=== PATIENT | male | born 1975 | race Caucasian/White ===

== ENCOUNTER 2018-03-13 15:03 | Inpatient (IN) | payer MEDICARE ==
[~2018-03-13] VITALS: Ht 165.1 cm; Wt 115.7 kg
--- NOTE | ~2018-03-13 | HEMODYNAMI ---
PATIENT:KRISTINE PRO MEDICAL RECORD: [id number] : 75 LOCATION:D.MS Simpson2236 ADMISSION DATE: 03/13/18 Generatedon:03/28/201815:42 Patient name: KRISTINE PRO Patient #: [id number] SSN: : 1975 Date of study: 03/28/2018 Page: Of Hemodynamic Procedure Report Patient Data Patient Demographics Procedure consent was obtained First Name: KRISTINE Gender: Male Last Name: MORTEZA : 1975 Middle Initial: S Age: 42 year(s) Patient #: [id number] Race: Unknown Additional ID: [id number] Contact details Address: [address] [address] State: [place] City: [place] Zip code: [address] Past Medical History Allergies Allergen Reaction Date Comments Reported Penicillins 03/28/2018 Admission Admission Data Admission Date: 03/13/2018 Admission Time: 18:30 Room #: D.2236 Procedure Procedure Types Cath Procedure Peripheral Cath Diagnostic Procedure Miscellaneous Procedure Description Procedure Date Procedure Date: 03/28/2018 Procedure Start Time: 15:32 Procedure Staff Name Function Ramírez Lima MD Performing Physician Terence Valdivia RT Monitor Kaleigh Hernandez RN Nurse Kristen Mccoy RN Nurse Procedure Data Cath Procedure Fluoroscopy Diagnostic fluoroscopy Total fluoroscopy Time: 0.9 time: 0.9 min min Diagnostic fluoroscopy Total fluoroscopy dose: 55 dose: 55 mGy mGy Contrast Material Contrast Material Type Amount (ml) Isovue 300 10 Hemodynamics Rest Pre Cath Intra NCS Post Cath Procedure Log Time Note 14:51:36 Terence Valdivia RT (R) (CV) sent for patient. Start room use. 14:51:47 Time tracking: Regular hours (M-F 7:00 - 5:00) 14:51:52 Plan of Care:Hemodynamics will remain stable., Cardiac rhythm will remain stable., Comfort level will be maintained., Respiratory function will remain adequate., Patient/ family verbilizes understanding of procedure., Procedure tolerated without complication., Recovers from procedure without complications.. 14:51:58 Patient received from Med/Surg to IR Alert and oriented. Tansferred to table in Supine position. 14:51:59 Correct patient and procedure confirmed by team. 14:52:00 Signed procedure consent form obtained from patient. 14:52:01 ECG and BP/O2 sat monitors applied to patient. 14:52:02 Full Disclosure recording started 14:52:09 Use device set IR Diagnostic 14:52:10 Bag Decanter (2002S) opened to sterile field. 14:52:11 Sterile Angiographic Pack opened to sterile field. 14:52:11 Tegaderm 4 x 4 (1626W) opened to sterile field. 14:52:16 - 14:52:20 H&P Date Dictated: 03/28/2018 Within 30 days and on chart.. 14:52:22 Pre-procedure instructions explained to patient. 14:52:23 Pre-op teaching completed and patient verbalized understanding. 14:52:24 Family in waiting room. 14:52:27 Patient NPO since Midnight. 14:52:36 Patient allergic to Penicillins 14:52:41 Is the patient allergic to Iodine/contrast media? No. 14:52:43 Is patient on blood thinner?No 14:52:44 Patient diabetic? No. 14:52:46 - 14:52:47 ----Pre-sedation anethsthesia assessment.---- 14:52:51 Previous problem with sedation/anesthesia? No ? 14:52:53 Snore? Yes 14:52:55 Sleep apnea? Yes 14:52:57 Deviated septum? No 14:53:07 Opens mouth fully? Yes 14:53:09 Sticks out tongue? Yes 14:53:12 Airway obstruction? No ? 14:53:14 Dentures? No ? 15:03:25 IV patent on arrival in left forearm with 0.9% NaCl at [facility]. 15:12:56 Right abdomen area was prepped with chlora-prep and draped in sterile fashion 15:26:17 Alarms reviewed by R. N. 15:26:18 Sharps counted by scrub and verified by R.N. 15:26:20 Physician arrived 15::20 --------ALL STOP TIME OUT------ 15::21 Final Timeout: patient, procedure, and site verified with staff and physician. All members of the team are in agreement. 15:26:24 Right abdomen site verified by team. 15:26:30 Sedation plan: Local Anesthetic Medication:Lidocaine 15:26:41 Procedure started. 15:32:03 Local anesthetic to Abdominal area with Lidocaine 1% by Ramírez Lima MD.INITIAL ACCESS ONLY 15:32:31 BAG, DRAINAGE EMPTY 600ML W/BEAU ([id number]) opened to sterile field. 15:33:27 SUTURE ETHILON 2-0 BLK MONO FS opened to sterile field. 15:35:44 Procedure ended.(Physican Out) 15:39:58 Fluoroscopy time 00.90 minutes. 15:40:02 Fluoroscopy dose: 55 mGy 15:40:02 Flurop Dose total: 55 15:40:05 Contrast amount:Isovue 300 10ml. 15:40:07 Sharps counted by scrub and verified by R.N. 15:40:11 Insertion/operative site no bleeding no hematoma. 15:40:15 Post-op/insertion site Right Abdominal area dressed using a 4 x 4 and Tegaderm. 15:40:37 DRAIN RESUTURED IN WITH 2.0 ETHILON 15:41:15 Post procedure instruction explained to patient.Patient verbalizes understanding. 15:41:16 Procedure and supply charges have been captured, reviewed, submitted an d are correct. 15:41:20 Report given to Other. 15:41:[address] FOR DIFFERENT PROCEDURE Device Usage Item Name Manufacture Quantity Catalog Hospital Part Current Minimal Lot# / Number Charge Number Stock Stock Serial# Code Bag Decanter Microtek 1 [id number] (2001S) Medical Inc. Sterile Cardinal 1 [id number] 5 Angiographic Health Pack Tegaderm 4 x 3M 1 1626W [id number] 5 4 (1626W) BAG, Merit 1 [id number] 5 DRAINAGE Medical EMPTY 600ML W/BEAU (JDO351) SUTURE Ethicon 1 [id number] 5 ETHILON 2-0 BLK MONO FS Signature Audit Finger Stage Time Signature Unsigned Intra-Procedure 03/28/2018 Terence 3:41:57 PM Skip RT (R) (CV) Signatures Monitor : Terence Signature : Skip RT Date : Time : [id number] [place] [address]
--- NOTE | ~2018-03-13 | HEMODYNAMI ---
PATIENT:KRISTINE PRO MEDICAL RECORD: [id number] : 75 LOCATION:D.NH D.2236 ADMISSION DATE: 03/13/18 Generatedon:03/30/201810:22 Patient name: KRISTINE PRO Patient #: [id number] SSN: : 1975 Date of study: 03/30/2018 Page: Of Hemodynamic Procedure Report Patient Data Patient Demographics Procedure consent was obtained First Name: KRISTINE Gender: Male Last Name: MORTEZA : 1975 Middle Initial: S Age: 42 year(s) Patient #: [id number] Race: Unknown Additional ID: [id number] Contact details Address: [address] [address] State: [place] City: [place] Zip code: [address] Past Medical History Allergies Allergen Reaction Date Comments Reported Penicillins 03/28/2018 Penicillins Other 03/30/2018 Admission Admission Data Admission Date: 03/13/2018 Admission Time: 18:30 Room #: D.2236 Procedure Procedure Types Cath Procedure Peripheral Cath Diagnostic Procedure Miscellaneous Procedure Description Procedure Date Procedure Date: 03/30/2018 Procedure Start Time: 10:09 Procedure End Time: 10:20 Procedure Staff Name Function Gareth Todd MD Performing Physician Kaleigh Sutton Monitor Kristen Mccoy RN Nurse Terence Valdivia RT Scrub Procedure Data Cath Procedure Fluoroscopy Diagnostic fluoroscopy Total fluoroscopy Time: 0.8 time: 0.8 min min Diagnostic fluoroscopy Total fluoroscopy dose: 29 dose: 29 mGy mGy Contrast Material Contrast Material Type Amount (ml) Isovue 300 10 Procedure Medications Medication Administration Route Dosage Lidocaine 1% added to field 20 Heparin Flush Bag added to field 1 bags (1000units/500ml NS) Hemodynamics Rest Pre Cath Intra NCS Post Cath Medications Time Medication Route Dose Verified Delivered Reason Notes Effe ctiveness by by 10:07:50 Lidocaine 1% added 20ml Gareth Servin for local to vial Peyton Todd anesthetic field MD MIRZA 10:08:02 Heparin Flush added 1 Gareth Servin used for Bag to bags Peyton Todd procedure (1000units/500ml field MD MIRZA NS) Procedure Log Time Note 9:57:16 Time tracking: Regular hours (M-F 7:00 - 5:00) 9:57:28 Plan of Care:Hemodynamics will remain stable., Cardiac rhythm will remain stable., Comfort level will be maintained., Respiratory function will remain adequate., Patient/ family verbilizes understanding of procedure., Procedure tolerated without complication., Recovers from procedure without complications.. 9:57:52 Patient received from Med/Surg to IR Alert and oriented. Tansferred to table in Supine position. 9:57:55 Warm blankets applied on for patient comfort. 9:58:56 Correct patient and procedure confirmed by team. 9:59:09 Signed procedure consent form obtained from patient. 9:59:14 Full Disclosure recording started 9:59:15 - 9:59:22 Pre-procedure instructions explained to patient. 9:59:25 Pre-op teaching completed and patient verbalized understanding. 9:59:32 Family unavailable. 9:59:48 Patient NPO since Midnight. 10:00:08 Patient allergic to Penicillins 10:00:21 Is the patient allergic to Iodine/contrast media? No. 10:01:27 IV patent on arrival in left wrist with 0.9% NaCl at O. 10:01:53 Right Abdomen was prepped with chlora-prep and draped in sterile fashion. 10:01:55 Alarms reviewed. 10:01:56 Sharps counted by scrub and verified . 10:02:54 No sedation will be used for this procedure. 10:03:34 Use device set IR Diagnostic 10:03:39 Bag Decanter (2002S) opened to sterile field. 10:03:40 Sterile Angiographic Pack opened to sterile field. 10:03:42 Tegaderm 4 x 4 (1626W) opened to sterile field. 10:07:50 Lidocaine 1% 20ml vial added to field was administered by Gareth chew MD; for local anesthetic; 10:08:02 Heparin Flush Bag (1000units/500ml NS) 1 bags added to field was administered by Gareth Todd MD; used for procedure; 10:08:03 Physician arrived 10:08:04 --------ALL STOP TIME OUT------ 10:08:06 Final Timeout: patient, procedure, and site verified with staff and physician. All members of the team are in agreement. 10:08:19 Right abdomen site verified by team. 10:08:38 Sedation plan: None Medication:none 10:09:00 Procedure started. 10:12:12 Dr. Todd injected existing drain. 10:13:10 [place] .035 15cm wire ([id number]) opened to sterile field. 10:15:18 [place].035wire is used to remove the existing drain cath. 10:15:28 Procedure ended.(Physican Out) 10:15:41 Fluoroscopy time 00.80 minutes. 10:16:14 Fluoroscopy dose: 29 mGy 10:16:14 Flurop Dose total: 29 10:16:22 Contrast amount:Isovue 300 10ml. 10:16:26 Sharps counted by scrub and verified . 10:17:38 Post Abdominal area:stable 10:18:00 Post-op/insertion site Right Abdominal area dressed using a 4 x 4 and Tegaderm. 10:18:07 Post procedure instruction explained to patient.Patient verbalizes understanding. 10:18:08 Patient needs reinforcement of post procedure teaching. 10:18:16 Procedure and supply charges have been captured, reviewed, submitted an d are correct. 10:20:12 See physician's report for complete and final results. 10:20:15 Report given to Med/Surg. 10:20:21 Patient transfered to Med/Surg with Bed. 10:20:32 Procedure ended. 10:20:32 Full Disclosure recording stopped 10:20:39 End room use (Document Last) Device Usage Item Name Manufacture Quantity Catalog Hospital Part Current Minimal Lot# / Number Charge Number Stock Stock Serial# Code Bag Decanter Microtek 1 [id number] () Medical Inc. Sterile Cardinal 1 [id number] 5 Angiographic Health Pack Tegaderm 4 x 3M 1 1626W [id number] [id number] 5 4 (1626W) [place] .035 [facility] 1 [id number] 15cm wire ([id number]) Signature Audit Whiting Stage Time Signature Unsigned Intra-Procedure 03/30/2018 Kaleigh 10:22:06 AM Herman Signatures Monitor : Kaleigh Signature : Herman Date : Time : [facility] [address] [place] [address]
--- NOTE | 2018-03-13 15:05 | NUR ---
PT HERE FROM [facility]. A TRANSFER WITH ARF, LFT'S WERE ELEVATED ALONG WITH BNP, BUN, CR. AND CARDIAC ENZ. PT HAD 2 LITERS OF FLUID AND A 500CC BOLUS PRIOR TO ARRIVAL TO ER.
[2018-03-13] MEDS ORDERED: ASPIRIN325 MG PO (15:07)
[2018-03-13 15:56] LABS: BASOPHILS 0.1 % (0-2); EOSINOPHILS 0.9 % (0-7); HEMATOCRIT 33.4 % (42.0-54.0); HEMOGLOBIN 11.6 g/dL (13.5-17.5); IMMATURE GRANULOCYTES 8.8 % (0-5); LYMPHOCYTES 2.6 % (15-50); MCH 29.4 pg (26.0-34.0); MCHC 34.7 g/dL (31.0-37.0); MCV 84.6 fL (80.0-100.0); MEAN PLATELET VOLUME 10.2 fL (7.4-10.4); MONOCYTES 0.3 % (2-11); NEUTROPHILS 87.3 % (40-80); PLATELET COUNT 197 10x3/uL (130-400); RBC 3.95 10x6/uL (4.20-6.10); RDW 13.9 % (11.5-14.5); WBC 15.2 10x3/uL (4.8-10.8)
[2018-03-13 16:09] LABS: INR 1.47 (0.85-1.17); PROTIME 17.2 SECONDS (11.6-15.0)
--- NOTE | 2018-03-13 16:18 | NUR ---
RENAL DIET SERVED TO PT. HE IS RESTING ON RIGHT SIDE, SAT UP IN BED TO EAT. DR SMITH IN WITH PT. BOLUS OF RL INFUSING. PT KARLOS. WELL.
[2018-03-13 16:19] VITALS: BP 98/57
[2018-03-13 16:23] LABS: ALBUMIN 1.5 g/dL (3.4-5.0); ANION GAP 26.2 mmol/L (8-16); BILIRUBIN - TOTAL 0.92 mg/dL (0.2-1.3); CARBON DIOXIDE 15.2 mmol/L (21.0-32.0); CREATININE - SERUM 3.9 mg/dL (0.6-1.3); POTASSIUM - SERUM 3.4 mmol/L (3.5-5.1); PROTEIN - SERUM 5.5 g/dL (6.4-8.2)
[2018-03-13 16:25] LABS: CALCIUM 5.8 mg/dL (8.5-10.1)
[2018-03-13 17:48] VITALS: BP 86/60
--- NOTE | 2018-03-13 17:48 | NUR ---
BLADDER SCANNER SHOWS 0ML'S IN PTS BLADDER. HAS BEEN UNABEL TO COLLECT A URINE SINCE ARRIVAL. STATES HE WENT IN THE AMBULANCE ON THE WAY HERE.
--- NOTE | 2018-03-13 18:22 | NUR ---
PT SITTING UP IN BED, SHAKING AND BREATHING HARD, STATES "I AM GOING TO NEED SOMETHING STRONG I AM ABOUT TO HAVE AN EPISODE" EXPLAIN THAT HE WAS GIVEN ATIVAN AT [place] AND THE AMBULANCE GAVE HIM BENADRYL. HE STATES " I AM GOING TO NEED SOMETHING STRONGER THAN THAT". WHAT HE TAKES AT HOME FOR THESE EPISODES AND HE STATES HE JUST STARTED HAVING THIS PROBLEM, HAS HAD ABOUT 7 . HIS MOTHER IS AT HIS BEDSIDE, INFORM DR. SMITH OF WHAT HE IS DOING.
--- NOTE | 2018-03-13 18:33 | NUR ---
PT CONT. TO LISA, MOM AT BEDSIDE, DR. SMITH IN TO SEE PT. VISTARIL GIVEN PER ORDERS. PT KARLOS. WELL
[2018-03-13 18:42] VITALS: BP 158/84
--- NOTE | 2018-03-13 18:42 | NUR ---
PT STARTING TO CALM DOWN, INCOURAGE HIM TO SLOW HIS BREATHING DOWN.
[2018-03-13 19:06] LABS: CREATINE KINASE 366 UL (21-232)
[2018-03-13 19:09] LABS: CKMB 2.7 U/L (0.0-3.6)
--- NOTE | 2018-03-13 19:20 | NUR ---
PT RESTING ON BED, FAMILY AND DR CASAS AT PT BEDSIDE.
--- NOTE | 2018-03-13 19:35 | MORECARE ---
CASE MANAGEMENT DISCHARGE SUMMARY PATIENT: KRISTINE PRO UNIT: [id number] ADM DATE: 03/13/18 AGE: 42 : 75 SEX: M ROOM/BED: D.2139 AUTHOR: ALFREDO HORTON PHYSICIAN: REFERRING PHYSICIAN: CRISTIN RICKETTS MD DATE OF SERVICE: 03/13/18 Discharge Plan Patient Name: KRISTINE PRO [facility] [facility] 1975 Planned Disposition: Anticipated Discharge Date: Discharge Date: Expected LOS: Initial Reviewer: [email or web address] Initial Review Date: 03/13/2018 Generated: 03/13/18 8:34 pm Patient Name: KRISTINE PRO Page 30415 at 1935 All edits/amendments must be made on the electronic document DICTATION DATE: 03/13/181933 PLANT OPERATIONS COORDINATOR: JODY 03/13/181933 RPT#: [id number] DC DATE: STATUS: ADM IN [facility] [address] [place] [address] END OF REPORT
--- NOTE | 2018-03-13 19:53 | NUR ---
CRITICAL LAB LACTIC ACID 6.1. DR JAMARCUS ARSHAD.
--- NOTE | 2018-03-13 20:12 | NUR ---
NO RETURN CALL REGARDING CRITICAL LAB AT THIS TIME. PT TRANSPORTED TO INPATIENT ROOM VIA .
[2018-03-13] MEDS ORDERED: ALEVE220 MG PO (20:24)
--- NOTE | 2018-03-13 20:25 | NUR ---
RECEIVED FROM ER VIA WC. ALERT/ORIENTED X3. AMBULATED TO BED WITH STEADY GAIT. IV IN R FA WITH LR INFUSING AT 125ML/HR. DENIES PAIN OR ANY DISCOMFORT. ORIENTED TO ROOM AND CALL LIGHT. HIS MOTHER IS STAYING THE NIGHT.
[2018-03-13 20:53] VITALS: BP 89/50
[2018-03-13 22:25] LABS: APPEARANCE HAZY (CLEAR); BILIRUBIN NEGATIVE (NEGATIVE); COLOR DK YELLOW (YELLOW); GLUCOSE NEGATIVE (NEGATIVE); KETONE NEGATIVE (NEGATIVE); NITRITE NEGATIVE (NEGATIVE); PROTEIN 1+ mg/dL (NEGATIVE); SPECIFIC GRAVITY 1.015 (1.005-1.020); UROBILINOGEN NORMAL (NORMAL)
[2018-03-13 22:27] LABS: BACTERIA MODERATE /hpf (NONE SEEN); EPITHELIAL CELLS 0-5 /hpf (0-5); RED CELLS - URINE 0-5 /hpf (0-5); WHITE CELLS - URINE 0-5 /hpf (0-5)
[2018-03-13 22:28] LABS: AMORPHOUS SEDIMENT <1+ /lpf (NONE SEEN); GRANULAR CAST 0-5 /lpf (NONE SEEN)
[2018-03-13 22:36] LABS: UDS - AMPHET NEGATIVE QUAL (NEGATIVE); UDS - BARB NEGATIVE QUAL (NEGATIVE); UDS - BENZO NEGATIVE QUAL (NEGATIVE); UDS - COCAINE NEGATIVE QUAL (NEGATIVE); UDS - OPIATE NEGATIVE QUAL (NEGATIVE); UDS - PCP NEGATIVE QUAL (NEGATIVE); UDS - THC NEGATIVE QUAL (NEGATIVE)
--- NOTE | 2018-03-13 23:00 | NUR ---
C/O CHILLS AND VISIBLE SHAKING NOTED. TURNED UP THE TEMP AND GOT HIM ANOTHER BLANKET. REQUESTED SOME MORE JUICE.
[2018-03-14] VITALS (10 sets, daily range): BP systolic 82–134; BP diastolic 41–73; BMI 35.0
--- NOTE | 2018-03-14 00:30 | NUR ---
HAVING 2ND SESSION OF DIARRHEA. RAILROAD DETECTIVE TAKING HIM ANOTHER GOWN AND PAD FOR HIS BED.
[2018-03-14 04:42] LABS: BASOPHILS 0.1 % (0-2); EOSINOPHILS 0 % (0-7); HEMATOCRIT 28.9 % (42.0-54.0); HEMOGLOBIN 10.2 g/dL (13.5-17.5); IMMATURE GRANULOCYTES 8.1 % (0-5); LYMPHOCYTES 2.9 % (15-50); MCH 29.6 pg (26.0-34.0); MCHC 35.3 g/dL (31.0-37.0); MCV 83.8 fL (80.0-100.0); MEAN PLATELET VOLUME 11.3 fL (7.4-10.4); NEUTROPHILS 87.9 % (40-80); RBC 3.45 10x6/uL (4.20-6.10); RDW 13.8 % (11.5-14.5); WBC 16.4 10x3/uL (4.8-10.8)
[2018-03-14 04:54] LABS: PLATELET COUNT 135 10x3/uL (130-400)
[2018-03-14 05:44] LABS: CARBON DIOXIDE 13.5 mmol/L (21.0-32.0); CHLORIDE - SERUM 96 mmol/L (98-107); CREATININE - SERUM 4.3 mg/dL (0.6-1.3); POTASSIUM - SERUM 3.7 mmol/L (3.5-5.1); SODIUM 131 mmol/L (136-145); UREA NITROGEN 66 mg/dL (7-18); eGFR NON AFRICAN AMERICAN 16 mL/min (90-120)
[2018-03-14 05:45] LABS: CALC OSMOLALITY 279 mosm/kg (275-300); CALCIUM 6.5 mg/dL (8.5-10.1); CREATINE KINASE 793 UL (21-232); GLUCOSE 65 mg/dL (74-106)
[2018-03-14 05:46] LABS: CKMB 3.5 U/L (0.0-3.6)
--- NOTE | 2018-03-14 08:41 | NUR ---
SPOKE WITH DR. CUMMINGS HE STATES HE KNOWS PT ALREADY ATE AND CT WAS ORDERED IF THEY HAVE TO DO IT TOMOROW AM THAT'S FINE LONG IT GETS DONE.
--- NOTE | 2018-03-14 09:35 | NUR ---
RESP UL ON . CALL LIGHT IN REACH. WILL CONT. PLAN OF CARE.
--- NOTE | 2018-03-14 09:43 | NUR ---
WAITING FOR PHARMACY TO BRING SODIUM BICARB.
--- NOTE | 2018-03-14 10:45 | NUR ---
STOOL COLLECTION HAT PLACED IN COMMODE AND PT VERBALIZED UNDERSTANDING OF STOOL COLLECTION NEEDED.
--- NOTE | 2018-03-14 10:56 | NUR ---
SPOKE WITH RASHMI IN PHARMACY AND ASKED FOR SODIUM BICARB. HE STATES "WE'LL GET YOU ONE."
--- NOTE | 2018-03-14 11:40 | NUR ---
PT TAKEN FOR CT SCAN VIA WC.
--- NOTE | 2018-03-14 13:59 | NUR ---
PT CAN'T KEEP FOOD OR DRINK DOWN. GAVE PT BLUE BAGS. CALLED TAYLOR MADISON AND STATED TO HER I HAVE ALREADY GIVEN PT ZOFRAN IS THERE ANYTHING ELSE I CAN GET FOR HIM. SHE STATED SHE'S "LOOKING AT HIS CHART RIGHT NOW AND SHE'LL LOOK AND SEE." STATED THIS TO PT AND FAMILY AND THEY VERBALIZED UNDERSTANDING.
--- NOTE | 2018-03-14 15:50 | NUR ---
LEFT FA 22G IV INSERTED ON X2 ATTEMPT FOR ZOFRAN DRIP. WAITING ON PHARMACY TO BRING SOFRAN DRIP.
--- NOTE | 2018-03-14 16:01 | NUR ---
SPOKE WITH ABRIL FROM PHARMACY AND ASKED IF SHE WOULD BRING ZOFRAN DRIP AND SHE STATED "YES."
--- NOTE | 2018-03-14 16:11 | NUR ---
SPOKE WITH TAYLOR [facility] AND SHE STATES SHE FORGOT TO PUT IN ORDERS FOR NG TUBE TO LOW INTERMITTENT SUCTION AND TO MAKE PT NPO BUT HE CAN HAVE ICE CHIPS. I STATED TO HER PT'S BP IS 89/50 BUT HE'S BEEN RUNNING PRETTY LOW. SHE STATES TO CALL DR. HART AND ASK HIM IF PT'S NEEDS TO GO TO THE ICU.
--- NOTE | 2018-03-14 16:18 | NUR ---
SPOKE WITH DR. HART AND STATED TO HIM "PT'S BP IS 89/50 AND I SPOKE WITH TAYLOR M[facility]ISON AND SHE STATES TO ME TO CALL HIM AND SEE IF PT CAN GO TO THE UNIT." HE STATED "NO HE DOESN'T NEED TO GO TO THE UNIT HE'S JUST DEHDRATED FROM THROWING UP JUST GIVE HIM 1L BOLUS OF NS AND START NS AT 150ML/HR AND IF HIS BLOOD PRESSURE CONTINUES TO DROP TO CALL BACK." SPOKE WITH CHARGE NURSE ABOUT THESE ORDERS AND RASHIDA PARKS APN PAGED.
--- NOTE | 2018-03-14 16:30 | NUR ---
SPOKE WITH RASHIDA MAD[facility] ABOUT WHAT IS GOING ON WITH PT AND EXPLAINED TO HER MY CONCERNS FOR NG TUBE PLACEMENT, BP, AND PT NOT BEING ABLE TO BE WATCHED CLOSE ENOUGH ON THIS FLOOR. SHE STATES "DO NS BOLUS AND SEE WHAT HAPPENS AND IF BP DOESN'T CHANGE CALL ME BACK."
--- NOTE | 2018-03-14 16:30 | NUR ---
RASHIDA MADISON ALSO STATES SO HAVE PT USE A URINAL SO WE KNOW HOW MUCH HE IS PUTTING OUT.
--- NOTE | 2018-03-14 16:49 | NUR ---
NS BOLUS INFUSING AT 999ML/HR THROUGH RIGHT FA 18G IV.
--- NOTE | 2018-03-14 17:13 | NUR ---
ROBBIN RN TRIED PLACING NG TUBE AND PT REFUSED AND KEPT PUSHING HER ARMS AWAY. SPOKE WITH DR. HART HE STATES "OK THAT'S HIS CHOICE JUST MAKE HIM NPO AFTER MIDNIGHT FOR BIOPSY IN THE AM."
--- NOTE | 2018-03-14 18:04 | NUR ---
STATED TO PT THEY ARE WANTING TO KEEP TRACK OF HOW MUCH PT IS URINATING. GAVE PT A URINAL. ALSO STATED TO PT HE IS TO BE NPO AFTER MIDNIGHT. PT VERBALIZED UNDERSTANIDNG. CONSENTS FOR TOMORROW LIVER ASPIRATION SIGNED. DEB CALLAHAN STARTED.
--- NOTE | 2018-03-14 18:15 | NUR ---
CHECKED PT'S BP 30 MIN. AFTER NS BOLUS WAS COMPLETED IN RIGHT ARM 91/61 RECHECKED AND IT WAS 89/63. CHECKED IN LEFT ARM AND IT WAS 94/[address]. [address] HART AND STATED TO HIM PT'S BP'S AND THAT HE IS A LITTLE LETHARGIC AND HAVING AHARD TIME WAKING UP. HE STATES "OK SEND HIM TO THE UNIT."
--- NOTE | 2018-03-14 18:18 | NUR ---
PILE DRIVER ENGINEER CALLED AND STATED TO HER PT NEEDING ICU BED SHE STATED OK SHE WILL GET ONE.
--- NOTE | 2018-03-14 18:26 | NUR ---
STATED TO PT'S MOTHER THAT SINCE HIS BP IS STILL STAYING SO LOW EVEN AFTER THE NS BOLUS I SPOKE WITH DR. HART AND HE STATES TO SEND HIM TO ICU. SHE VERBALIZED UNDERSTANIDNG AND GOT PT TO WAKE UP TO TELL HIM AND HE SAID "OK."
--- NOTE | 2018-03-14 18:36 | NUR ---
SPOKE WITH LAB AND THEY STATED THEY HAVE TWO GRAM POSITIVE COCCI IN CHAINS.
--- NOTE | 2018-03-14 18:54 | NUR ---
PT WANITNG SOMETHING FOR ANXIETY AND PAIN BUT SINCE HIS BP IS SO SLOW HE WON'T BE ABLE TO TAKE ANYTHING. STATED THIS TO PT. PT VERBALIZED UNDERSTANDING.
--- NOTE | 2018-03-14 19:05 | NUR ---
REPORT CALLED TO [facility] ICU THEY STATED HAVE TO CLEAN THE ROOM FIRST.
--- NOTE | 2018-03-14 19:24 | NUR ---
PT TO ICU PER WHEELCHAIR
--- NOTE | 2018-03-14 20:04 | NUR ---
REPORT RECEIVED, SHIFT ASSESSMENT COMPLETED PER FLOW SHEET, PT TEMP ELEVATED, MED GIVEN PER MAR, ON ICU MONITORS, PT C/O BEING HOT, DECREASED TROOM TEMP, REMOVED EXCESS BLANKETS, WILL CONTINUE TO ASSESS, PT MOTHER AT BEDSIDE
--- NOTE | 2018-03-14 23:30 | NUR ---
PT GRUNTING AND MOVING AROUND IN BED, C/O BEING COLD, PT GIVEN X2 WARM BLANKETS AND TEMP IN ROOM INCREASED, PT STATED CHANGES HELPED, SINUS TACH @105bpm ON MONITOR, OTHER VSS, WILL CONTINUE TO ASSESS
[2018-03-15] VITALS (30 sets, daily range): BP systolic 87–178; BP diastolic 51–117
--- NOTE | 2018-03-15 02:30 | NUR ---
PT HAS INCREASED N/V, DRY HEAVING AT THIS TIME, GAVE N/V MED PER MAR, WILL CONTINUE TO ASSESS
[2018-03-15 04:22] LABS: BASOPHILS 0.1 % (0-2); EOSINOPHILS 0.1 % (0-7); HEMATOCRIT 30.8 % (42.0-54.0); HEMOGLOBIN 10.8 g/dL (13.5-17.5); IMMATURE GRANULOCYTES 0.5 % (0-5); LYMPHOCYTES 5.1 % (15-50); MCH 29.4 pg (26.0-34.0); MCHC 35.1 g/dL (31.0-37.0); MCV 83.9 fL (80.0-100.0); MEAN PLATELET VOLUME 11.6 fL (7.4-10.4); MONOCYTES 5.5 % (2-11); NEUTROPHILS 88.7 % (40-80); RBC 3.67 10x6/uL (4.20-6.10); RDW 13.8 % (11.5-14.5); WBC 17.2 10x3/uL (4.8-10.8)
[2018-03-15 04:26] LABS: INR 1.43 (0.85-1.17); PROTIME 16.9 SECONDS (11.6-15.0)
[2018-03-15 04:55] LABS: ALBUMIN 1.3 g/dL (3.4-5.0); ALKALINE PHOSPHATASE 191 U/L (46-116); BILIRUBIN - DIRECT 0.88 mg/dL (0.00-0.30); BILIRUBIN - INDIRECT 0.25 mg/dL (0.00-1.00); BILIRUBIN - TOTAL 1.13 mg/dL (0.2-1.3); CHLORIDE - SERUM 97 mmol/L (98-107); CREATININE - SERUM 3.4 mg/dL (0.6-1.3); MAGNESIUM - SERUM 1.4 mg/dL (1.8-2.4); PHOSPHOROUS 3.1 mg/dL (2.5-4.9); PLATELET COUNT 57 10x3/uL (130-400); POTASSIUM - SERUM 3.2 mmol/L (3.5-5.1); PROTEIN - SERUM 5.7 g/dL (6.4-8.2); SODIUM 132 mmol/L (136-145); UREA NITROGEN 75 mg/dL (7-18); eGFR NON AFRICAN AMERICAN 21 mL/min (90-120)
[2018-03-15 04:57] LABS: CALC OSMOLALITY 286 mosm/kg (275-300); GLUCOSE 102 mg/dL (74-106)
[2018-03-15 04:58] LABS: ALT (SGPT) 153 U/L (10-68); CALCIUM 6.2 mg/dL (8.5-10.1); CREATINE KINASE 427 UL (21-232)
[2018-03-15 05:39] LABS: PLATELET ESTIMATE DECREASED
--- NOTE | 2018-03-15 07:00 | NUR ---
PATIENT RESTING IN BED AWAKE AND ALERT. C/O BEING COLD SO TURNED UP TEMP IN ROOM, TURNED FAN OFF, AND GAVE WARM BLANKET. SLIGHTY TACHYPNEIC. LUNG SINCLAIR CLEAR BUT WITH SHALLOW BREATHS. O2 SAT 92% ON OXYGEN ON 4 L/NC. VSS. WILL CONTINEUT TO MONITOR.
--- NOTE | 2018-03-15 11:06 | NUR ---
PATIENT TAKEN DOWN TO CT AT THIS TIME. BROUGHT PORTABLE VS MACHINE, OXYGEN, AND IV POLE.
--- NOTE | 2018-03-15 13:19 | NUR ---
PATIENT HEART RATE 140. 02 SAT 83%. PATIENT IS HYPERVENTILATING. ATIVAN ALREADY GIVEN. GAVE PLASICT BAG FOR HYPERVENTILLATION
--- NOTE | 2018-03-15 13:29 | NUR ---
PATIENT HAS CALMED DOWN CONSIDERABLY. O2 SAT MAINTAINING 90%. HR SLOWED TO 125. WILL CONTINUE TO MONITOR. DR. HART AWARE OF CONDITION
--- NOTE | 2018-03-15 14:37 | NUR ---
LAST K+ BAGG HANGING. STARTED NS AT 125. O2 STILL INFUSING NC AT 6L/MIN. WILL CONTINUE TO MONITOR.
--- NOTE | 2018-03-15 14:59 | NUR ---
STAT CHEST X-RAY ORDERED AND PLACED ON HIGH FLOW NC AT 7L. O2 SAT 96%. PATIENT BREATH MORE EFFECTIVELY NOW. BP 93/53. MAP 68. WILL CONTINUE TO MONITOR
--- NOTE | 2018-03-15 16:09 | NUR ---
NOTIFIED DR. HART OF LOW BP, AND NEED FOR HIGH FLOW NC AT 7L/MIN.
--- NOTE | 2018-03-15 16:19 | NUR ---
NOTIFIED DR. HART OF RESULTS FROM LIVER ABSCESS CULTURES
--- NOTE | 2018-03-15 17:00 | NUR ---
CALLED PATIENTS MOM PER PATIENT REQUEST TO GIVE UPDATE ON PATIENT FEELING BETTER. DID NOT ANSWER.
--- NOTE | 2018-03-15 17:55 | NUR ---
SERVED PATIENT DINNER TRAY. VSS. AWAKE AND ALERT. WILL CONTINUE TO MONITOR
[2018-03-15 18:46] LABS: ANION GAP 16.5 mmol/L (8-16); CARBON DIOXIDE 23.4 mmol/L (21.0-32.0); CREATININE - SERUM 3.2 mg/dL (0.6-1.3); POTASSIUM - SERUM 3.9 mmol/L (3.5-5.1)
[2018-03-15 18:47] LABS: CALCIUM 6.6 mg/dL (8.5-10.1)
--- NOTE | 2018-03-15 19:10 | NUR ---
ASSESSMENT COMPLETED PER FLOWSHEET, PT AWAKE AND ALERTX3, C/O PAIN TO RT SIDE, ABDOMEN 5/10 ON SCALE, REPOSIIONED FOR COMFORT. PAIN MEDS GIVEN PER ORDER. SR ON CM WITH HR AT 84BPM, LUNG SOUNDS DIMINISHED TO LLB, UNLABORED, ON 5L VIA HIGH FLOW. RT DRAIN INTACT WITH BLOODY DRAINAGE NOTED TO BAG. PPP. WILL CONT TO MONITOR.
--- NOTE | 2018-03-15 21:00 | NUR ---
NO VISITORS AT THIS TIME. PT RESTING QUIETLY WITHOUT DISTRESS.VSS
--- NOTE | 2018-03-15 23:00 | NUR ---
REASSESSMENT COMPLETED PER FLOWSHEET.PT AROUSES WITH VOICES WITHOUT DIFFIC. VSS. DENIES ANY NEEDS FOR NOW. CALL LIGHT IN REACH. CPOC.
[2018-03-16] VITALS (13 sets, daily range): BP systolic 101–147; BP diastolic 55–81; BMI 37.4
--- NOTE | 2018-03-16 01:00 | NUR ---
PT RESTING QUIETLY WITHOUT DISTRESS AT THIS TIME. ASSISTED WITH URINAL. VOIDS 200CC CONC. URINE. VSS. CALL LIGHT IN REACH. CPOC.
--- NOTE | 2018-03-16 04:00 | NUR ---
PT C/O VOMITING. 30CC YELLOW EMESIS NOTED.COLD WASH CLOTH TO FOREHEAD APPLED, MOUTH CARE PROVIDED. ZOFRAN 4MG IVP GIVEN PER ORDER. CPOC.
[2018-03-16 04:40] LABS: INR 1.33 (0.85-1.17); PROTIME 15.9 SECONDS (11.6-15.0)
[2018-03-16 04:49] LABS: ALBUMIN 1.3 g/dL (3.4-5.0); ANION GAP 14.7 mmol/L (8-16); BILIRUBIN - TOTAL 1.07 mg/dL (0.2-1.3); CARBON DIOXIDE 24.1 mmol/L (21.0-32.0); CREATININE - SERUM 2.9 mg/dL (0.6-1.3); POTASSIUM - SERUM 3.8 mmol/L (3.5-5.1); PROTEIN - SERUM 6.3 g/dL (6.4-8.2); VANCOMYCIN - RANDOM 7.5 ug/mL (10.0-20.0)
[2018-03-16 04:58] LABS: PHOSPHOROUS 5.7 mg/dL (2.5-4.9)
[2018-03-16 05:07] LABS: BASOPHILS 0.1 % (0-2); EOSINOPHILS 0.1 % (0-7); HEMATOCRIT 33.7 % (42.0-54.0); HEMOGLOBIN 11.5 g/dL (13.5-17.5); IMMATURE GRANULOCYTES 0.5 % (0-5); LYMPHOCYTES 6.1 % (15-50); MCHC 34.1 g/dL (31.0-37.0); MCV 85.1 fL (80.0-100.0); MEAN PLATELET VOLUME 12.6 fL (7.4-10.4); MONOCYTES 5.9 % (2-11); NEUTROPHILS 87.3 % (40-80); RBC 3.96 10x6/uL (4.20-6.10); RDW 14.2 % (11.5-14.5); WBC 15.2 10x3/uL (4.8-10.8)
[2018-03-16 05:08] LABS: PLATELET COUNT 34 10x3/uL (130-400)
--- NOTE | 2018-03-16 05:33 | NUR ---
PT C/O PAIN 5/10 ON SCALE, DILAUDID 1MG IVP GIVEN PER ORDER. REPOSITIONED FOR COMFORT. CALL LIGHT IN REACH. CPOC
--- NOTE | 2018-03-16 07:39 | NUR ---
PT SITTING UP IN BED USING URINAL. NO S/S OF ACUTE DISTRESS. CL IN PLACE.
--- NOTE | 2018-03-16 11:18 | NUR ---
CALLED REPORT TO [facility]. TRANS PT VIA WC. NO S/S OF ACUTE DISTRESS. MOTHER AT BEDSIDE.
--- NOTE | 2018-03-16 11:18 | NUR ---
PATIENT TRANSFERED TO FLOOR AT THIS TIME BY TWO ICU NURSES. PATIENT ASSISTED TO BED. DRAIN INTACT WITH BROWN DRAINAGE NOTED. VITALS ARE STABLE WITH ELEVATED TEMP AT THIS TIME. FAMILY AT BEDSIDE.
--- NOTE | 2018-03-16 19:30 | NUR ---
RESUMING PT CARE, PT IS LAYING IN BED WITH EYES CLOSED, RESPIRATIONS EVEN AND UNLABORED. MOTHER IS AT BEDSIDE, BED IN LOWEST POSITION WITH RAILS UP X2, CALL LIGHT IN REACH. WILL CONTINUE TO MONITOR AND FOLLOW PLAN OF CARE.
[2018-03-17] VITALS (12 sets, daily range): BP systolic 90–189; BP diastolic 7–94
[2018-03-17 05:22] LABS: BASOPHILS 0.1 % (0-2); EOSINOPHILS 0.1 % (0-7); HEMOGLOBIN 10.5 g/dL (13.5-17.5); IMMATURE GRANULOCYTES 1.2 % (0-5); LYMPHOCYTES 2.7 % (15-50); MONOCYTES 4.6 % (2-11); NEUTROPHILS 91.3 % (40-80); RBC 3.62 10x6/uL (4.20-6.10); WBC 16.9 10x3/uL (4.8-10.8)
[2018-03-17 05:23] LABS: MCV 82.9 fL (80.0-100.0); PLATELET COUNT 38 10x3/uL (130-400)
[2018-03-17 05:37] LABS: ANION GAP 12.4 mmol/L (8-16); BILIRUBIN - TOTAL 1.67 mg/dL (0.2-1.3); CARBON DIOXIDE 21.6 mmol/L (21.0-32.0); CREATININE - SERUM 2.1 mg/dL (0.6-1.3); MAGNESIUM - SERUM 1.6 mg/dL (1.8-2.4); PHOSPHOROUS 3.4 mg/dL (2.5-4.9); PROTEIN - SERUM 5.8 g/dL (6.4-8.2)
[2018-03-17 05:41] LABS: CALCIUM 6.6 mg/dL (8.5-10.1)
--- NOTE | 2018-03-17 06:36 | NUR ---
RAPID RESPONSE CALLED, ICU RESPONDED AND CONSULTED WITH DR HART. PT SEEMS BETTER AT THIS TIME, MOM IS AT BEDSIDE. CALL LIGHT IN REACH, WILL CONTINUE TO MONITOR.
--- NOTE | 2018-03-17 07:35 | NUR ---
ROUNDING COMPLETED AT THIS TIME. PATIENT IS RESTING WITH EYES CLOSED. MOM IS AT BEDSIDE. RASHIDA MADISON NOTIFIED OF LOW POTASSIUM AND MAGNESIUM. NEW ORDERS GIVEN TO FOLLOW PROTOCOL WITH 40 MEQ KDUR AND 800 MG MAG OX. CALL LIGHT IN REACH. BED IN LOWEST POSITION.
--- NOTE | 2018-03-17 13:57 | EC ---
PATIENT:KRISTINE PRO DATE OF SERVICE: 03/13/18 SEX: M MEDICAL RECORD: [id number] DATE OF : 75 LOCATION:D.M2 D.210 AGE OF PATIENT: 42 ADMISSION DATE: 03/13/18 REFERRING PHYSICIAN: INTERPRETING PHYSICIAN: ESTIVEN GOYAL MD ECHOCARDIOGRAM REPORT ECHO CHARGES 4 ECHO COMPLETE Date: 03/15/18 CLINICAL DIAGNOSIS: R/O ENDOCARDITIS ECHOCARDIOGRAPHIC MEASUREMENTS (adult normal given) AC root (d.<3.7cm) 3.7 cm LV Septum d (<1.2 cm> 1.6 cm Valve Excursion 2.0 cm LV Septum (systole) 1.9 cm Left Atria (s.<4.0cm> 4.2 cm LVPW d(<1.2cm) 1.2 cm RV (d.<2.3cm) 4.1 cm LVPW (sytole) 1.3 cm LV diastole(<5.6CM) 5.8 cm MV E-F(>70mm/sec) cm LV systole 5.2 cm LVOT Diameter 1.9 cm MV exc.(>10mm) cm Est.ejection fraction (50-75%) % DOPPLER: LVIT cm/sec A 65 cm/sec E 82 cm/sec LA cm/sec RVSP 47.5 mmHg LVOT 129 cm/sec AOP1/2T m/s Asc. Ao 159 cm/sec RVOT 82 cm/sec RA cm/sec PA 105 cm/sec AV Gradient Peak 10.1 mmHg AV Mean 6.7 mmHg AV Area 2.1 cm MV Gradient Peak 5.2 mmHg MV Mean 2.4 mmHg MV Area cm COMMENTS: Aviation Program Manager: Rasta DILL Commercial Escrow Assistant: 3 Dr. Hernandez TAPE# PACS Pericardial Effusion N DATE OF SERVICE: Adequate 2D, color flow, spectral Doppler, and M-Mode. Borderline LVH. LV internal dimensions normal, wall motion normal. EF greater than or equal to 55%. Aortic valve is tricuspid, had no evidence of stenosis on Doppler interrogation. The left atrium mildly dilated at 4.2 cm. Mitral valve shows no prolapse. Trace MR. Right-sided chambers appear grossly normal. Mild TR, no evidence of vegetation in all 4 cardiac valves. TRANSINT:[id number] Voice Confirmation ID: [id number] DOCUMENT ID: [id number] ECHOCARDIOGRAM REPORT [id number] KRISTINE PRO,ESTIVEN Cutler MD at 1357 CC: [id number] DICTATION DATE: 03/16/18137 AGRICULTURAL EXTENSION SPECIALIST: 03/16/18 0731 ADM IN [place] [id number] [place] [address]
[2018-03-17 15:17] LABS: SPE - A/G RATIO 0.5 (0.7-1.7); SPE - ALBUMIN 1.6 g/dL (2.9-4.4); SPE - ALPHA-1 GLOBULIN 0.4 g/dL (0.0-0.4); SPE - BETA GLOBULIN 0.7 g/dL (0.7-1.3); SPE - GAMMA GLOBULIN 1.3 g/dL (0.4-1.8); SPE - M-SPIKE Not Observed g/dL (Not Observed)
--- NOTE | 2018-03-17 17:00 | NUR ---
REC'D PT TO ICU. TEMP 103.3. CALLED DR HART AND REPORTED TEMP. REC'D ORDERS FOR TYLENOL. ALL MONITORING EQUIPMENT ATTACHED AND ALARMS SET.
[2018-03-17 19:02] LABS: HEMATOCRIT 31.6 % (42.0-54.0); HEMOGLOBIN 11.2 g/dL (13.5-17.5); MCH 29.3 pg (26.0-34.0); MCHC 35.4 g/dL (31.0-37.0); MCV 82.7 fL (80.0-100.0); RBC 3.82 10x6/uL (4.20-6.10); RDW 14.1 % (11.5-14.5); WBC 18.9 10x3/uL (4.8-10.8)
[2018-03-17 19:04] LABS: PLATELET COUNT 66 10x3/uL (130-400)
[2018-03-17 19:18] LABS: APTT 40.8 SECONDS (22.8-39.4); INR 1.45 (0.85-1.17)
[2018-03-17 19:26] LABS: D-DIMER-QUANTITATIVE 11.12 ug/mLFEU (0.20-0.54)
--- NOTE | 2018-03-17 19:54 | NUR ---
RECEIVED CALL FROM [facility] L[facility]EL [address] HART AND RECEIVED VERBAL ORDER OF LACTULOSE 30MG BID, ORDER ENTERED AND VERIFIED, TO START AT 2100
--- NOTE | 2018-03-17 22:00 | NUR ---
NO S/S OF DISTRESS CALL LIGHT IN REACH ALL FLUIDS RUNNING ORDERED, VSS, ALL NEEDS MET AT THIS TIME ALL SAFETY MEASURES IN PLACE WILL CONTINUE TO MONITOR.
[2018-03-18] VITALS (26 sets, daily range): BP systolic 90–170; BP diastolic 52–119
--- NOTE | 2018-03-18 00:09 | NUR ---
vss all needs met, all safety measures in place will continue to monitor.
--- NOTE | 2018-03-18 02:07 | NUR ---
pt resting well, no s/s of distress vss, denies pain will continue to monitor.
--- NOTE | 2018-03-18 02:40 | NUR ---
pt becoming more alert asked for drink of water and it was given to him, he tolerated it well. no other needs at this time.
--- NOTE | 2018-03-18 04:34 | NUR ---
pt tried to refuse lab draw said he hadnt slept all night, returnd to room with phlebo and stated to pt he had slept all night and that it was important to have labs drawn at this time, pt allowed blood to be drawn.
[2018-03-18 04:46] LABS: BASOPHILS 0.1 % (0-2); EOSINOPHILS 0.1 % (0-7); LYMPHOCYTES 5.4 % (15-50); MCH 29.6 pg (26.0-34.0); MCHC 35.3 g/dL (31.0-37.0); MCV 83.7 fL (80.0-100.0); MONOCYTES 5.6 % (2-11); NEUTROPHILS 87.8 % (40-80); PLATELET COUNT 62 10x3/uL (130-400); RBC 4.06 10x6/uL (4.20-6.10); RDW 14.3 % (11.5-14.5); WBC 17.1 10x3/uL (4.8-10.8)
[2018-03-18 05:27] LABS: ALBUMIN 1.1 g/dL (3.4-5.0); ANION GAP 13.8 mmol/L (8-16); BILIRUBIN - TOTAL 1.52 mg/dL (0.2-1.3); CALCIUM 7.1 mg/dL (8.5-10.1); CREATININE - SERUM 1.6 mg/dL (0.6-1.3); POTASSIUM - SERUM 3.8 mmol/L (3.5-5.1); PROTEIN - SERUM 6.6 g/dL (6.4-8.2); VANCOMYCIN - RANDOM 8.2 ug/mL (10.0-20.0)
[2018-03-18 06:17] LABS: PLATELET ESTIMATE DECREASED; ROULEAUX 1+
--- NOTE | 2018-03-18 09:24 | NUR ---
NUTRITION F/U PT TOLERATING REG DIET, BACK IN ICU. WILL HONOR FOOD PREFERENCES, MONITOR PT PROGRESS. RD FOLLOWING
--- NOTE | 2018-03-18 20:00 | NUR ---
PT HAD LARGE BM ALL OVER BED UNABLE TO COLLECT SAMPLE, PT WAS CLEANED UP LINENS CHANGED, BED BATH GIVEN, MEDS GIVEN, PT VERY ANXIOUS ABOUT HAVING BM'S DID NOT WANT TO TAKE LACTULOSE, EDUCATED PT ABOUT NEEDING TO TAKE MEDS AND THAT HAVE MULTIPLE BM'S IS EXPECTED AND TO PLEASE CALL OUT AND TELL US IF HE HAS AN ACCIDENT, PT VERB UNDERSTANDING AND TOOK MEDICATION AND AGREED TO USE CALL LIGHT. ALL SAFETY MEASURES IN PLACE, ALL NEEDS MET AT THIS TIME WILL CONTINUE TO MONITOR.
[2018-03-19] VITALS (25 sets, daily range): BP systolic 90–162; BP diastolic 52–99
--- NOTE | 2018-03-19 00:33 | NUR ---
pt resting well complaining of pain in genitals they are red and swollen, offered a small ice pack patient refuse, cream was applied, vss, no other needs at this time will continue to monitor.
[2018-03-19 04:11] LABS: BASOPHILS 0.2 % (0-2); EOSINOPHILS 0.2 % (0-7); HEMATOCRIT 29.7 % (42.0-54.0); HEMOGLOBIN 10.3 g/dL (13.5-17.5); IMMATURE GRANULOCYTES 0.9 % (0-5); LYMPHOCYTES 7.1 % (15-50); MCH 28.8 pg (26.0-34.0); MCHC 34.7 g/dL (31.0-37.0); MEAN PLATELET VOLUME 12.3 fL (7.4-10.4); MONOCYTES 6.1 % (2-11); NEUTROPHILS 85.5 % (40-80); PLATELET COUNT 76 10x3/uL (130-400); RBC 3.58 10x6/uL (4.20-6.10); RDW 13.8 % (11.5-14.5); WBC 17.6 10x3/uL (4.8-10.8)
[2018-03-19 04:28] LABS: ALBUMIN 0.9 g/dL (3.4-5.0); ANION GAP 13.3 mmol/L (8-16); BILIRUBIN - TOTAL 1.73 mg/dL (0.2-1.3); CARBON DIOXIDE 24.3 mmol/L (21.0-32.0); CREATININE - SERUM 1.4 mg/dL (0.6-1.3); PHOSPHOROUS 3.4 mg/dL (2.5-4.9); POTASSIUM - SERUM 3.6 mmol/L (3.5-5.1); PROTEIN - SERUM 6.3 g/dL (6.4-8.2); VANCOMYCIN - RANDOM 13.1 ug/mL (10.0-20.0)
[2018-03-19 04:30] LABS: MAGNESIUM - SERUM 1.4 mg/dL (1.8-2.4)
[2018-03-19 04:31] LABS: CALCIUM 6.7 mg/dL (8.5-10.1)
--- NOTE | 2018-03-19 07:32 | NUR ---
RECEVIED BEDSIDE REPORT ON PATIENT AND ASSUMED CARE. PATIENT ALERT AND AWAKE ORIENTED X 3, STATES IN [place], REORIENTED TO BEING IN [place], IS ABLE TO ARTICULATE THE SITUATION. HEAD TO TOE ASSESSMENT COMPLETED. IV 18 GA TO R AC INFUSING WITHOUT DIFFICULTY OR S/S OF INFILTRATION. NS AT 125 CC/HR AND ZOFRAN 4.7 CC/HR (1 MG/HR). C/O NAUSEA BUT BETTER WITH GTT. BOWEL SOUNDS ACTIVE X 4, BBS CLEAR, EQUAL, DIMINISHED IN BASES. CM - SR RATE 82. SPO2 - 96% ON 4 LPM VIA HIGH FLOW NC. VSS. WILL CONTINUE TO MONITOR.
--- NOTE | 2018-03-19 09:17 | NUR ---
PATIENT RESTING QUIETLY, EYES CLOSED, EASILY AROUSED BY VOICE. MEDS GIVEN PER MAR. VSS. REPOSITIONED IN BED.
--- NOTE | 2018-03-19 09:31 | NUR ---
PATIENT RESTING QUIETLY, EYES CLOSED, EASILY AROUSED BY VOICE. VSS. REPOSITIONED IN BED AND MORNING MEDS GIVEN PER MAY.
--- NOTE | 2018-03-19 10:40 | NUR ---
PATIENT SHEETS CHANGED AND REPSOITIONED IN BED. REASSESSMENT COMPLETED, VSS. WILL CONTINUE TO MONITOR. MEDS GIVEN PER MAY.
--- NOTE | 2018-03-19 11:43 | NUR ---
PATIENT GIVEN LUNCH TRAY AND SAT UP IN BED.
--- NOTE | 2018-03-19 12:02 | NUR ---
PATIENT PLACED ON BEDPAN. LARGE BROWN SOFT FORMED BOWEL MOVEMENT.
--- NOTE | 2018-03-19 13:33 | NUR ---
IR DRAIN TO RIGHT ABDOMEN FLUSHED WITH 10 CC NS PER ORDER WITH 70 CC BILIOUS FLUID EMPTIED FROM DRAIN.
--- NOTE | 2018-03-19 13:58 | NUR ---
DR. HART AT ROOM UPDATED AND EXAMINES PATIENT. SPEAKS WITH PATIENT AND HIS MOTHER.
--- NOTE | 2018-03-19 14:55 | NUR ---
PATIENT REASSESSMENT COMPLETED. VSS. PATIENT PLACED ON BEDPAN. STOOL SAMPLE OBTAINED AND SENT TO LAB. REPOSITIONED IN BED.
--- NOTE | 2018-03-19 16:33 | NUR ---
PATIENT GIVEN DINNER TRAY AND REPOSITIONED IN BED. VSS.
--- NOTE | 2018-03-19 20:00 | NUR ---
ASSESSMENT COMPLETE, PT CLEAN AND DRY, WATER PROVIDED, VSS NO S/S OF DISTRESS, CALL LIGHT IN REACH, ALL SAFETY MEASURES IN PLACE ALL NEEDS MET AT THIS TIME. WILL CONTINUE TO MONITOR.
[2018-03-20] VITALS (16 sets, daily range): BP systolic 90–153; BP diastolic 52–103
--- NOTE | 2018-03-20 00:48 | NUR ---
PT KEEPS PULLING OXYGEN AND HEART MONITOR LEADS OFF ALONG WITH PULSE OX, PT VERY AGITATED, WILL CONTINUE TO REAPPLY AND MONITOR.
--- NOTE | 2018-03-20 01:08 | NUR ---
BLOOD STILL IFUSING PT TOLERATING WELL.
--- NOTE | 2018-03-20 02:33 | NUR ---
pt still pulling bp cuff and oxygen off, pulse ox off and heart monitor, very restless, vss no fever his temp is 98.6, pt getting angry that i keep putting it back on eductated pt that we need all this on him to monitor him and to make sure he is progressing. all were placed back on pt will continue to monitor.
[2018-03-20 03:58] LABS: BASOPHILS 0.1 % (0-2); EOSINOPHILS 0.1 % (0-7); HEMATOCRIT 28.3 % (42.0-54.0); HEMOGLOBIN 9.8 g/dL (13.5-17.5); LYMPHOCYTES 6.8 % (15-50); MCH 28.2 pg (26.0-34.0); MCHC 34.6 g/dL (31.0-37.0); MCV 81.6 fL (80.0-100.0); MEAN PLATELET VOLUME 11.8 fL (7.4-10.4); MONOCYTES 6.4 % (2-11); NEUTROPHILS 85.6 % (40-80); PLATELET COUNT 138 10x3/uL (130-400); RBC 3.47 10x6/uL (4.20-6.10); RDW 13.7 % (11.5-14.5); WBC 17.7 10x3/uL (4.8-10.8)
[2018-03-20 04:09] LABS: ANION GAP 12.8 mmol/L (8-16); CARBON DIOXIDE 23.3 mmol/L (21.0-32.0); CREATININE - SERUM 1.2 mg/dL (0.6-1.3); MAGNESIUM - SERUM 1.2 mg/dL (1.8-2.4); POTASSIUM - SERUM 3.1 mmol/L (3.5-5.1); VANCOMYCIN - RANDOM 17.4 ug/mL (10.0-20.0)
[2018-03-20 04:12] LABS: CALCIUM 6.4 mg/dL (8.5-10.1)
--- NOTE | 2018-03-20 06:20 | NUR ---
pt alarm going off, nurse went in room to find him standing by trash can using it a toilet, pt had a soft yellow bm. pt was returned to bed, and re-educated to use call light which was on his bed, pt received a bed bath new linens and gown. all safety measures remain in place.
--- NOTE | 2018-03-20 06:35 | NUR ---
pts K and Mag replacement started per order.
--- NOTE | 2018-03-20 07:00 | NUR ---
ASSESSMENT COMPLETED PT ORIENTED AND CONFRONTATIONAL DUE TO FRUSTRATION AT BEING IN HOSPTIAL. DESPITE MULTIPLE TIMES EXPLAINING NEED FOR BLOOD PRESSURE CUFF EKG LEADS AND PULSE OXIMETRY HE TAKES EVERYTHING OFF SOON RN LEAVES ROOM.
--- NOTE | 2018-03-20 10:30 | NUR ---
DR HART HERE FOR ROUNDS. STATES PT CAN BE TRANSFERRED TO FLOOR WHEN BED AVAILABLE. PT CONTINUES TO TAKE OFF O2 EKG LEADS AND PULSEOXIMETER. PT ALERT AND ORIENTED BUT ANGRY AND CONFRONTATIONAL READY TO GET OUT OF HOSPITAL. INFORMED PT THAT SOON ROOM AVAILABLE HE WILL BE MOVED TO FLOOR.
--- NOTE | 2018-03-20 11:00 | NUR ---
REASSESSMENT ALESHIA HART STATED PT CAN BE TRANSFERRED OUT TO FLOOR WHEN BED AVAILABLE. VSS REPOSITIONED FOR COMFORT
--- NOTE | 2018-03-20 16:00 | NUR ---
PT RESTING QUIETLY WITH EYES CLOSED VSS CALL LIGHT IN REACH DENIES NEEDS AT THIS TIME
--- NOTE | 2018-03-20 18:23 | NUR ---
ORDER PLACED FOR POTASSIUM AND MAG LAB DRAWS. MISSED AFTER REPLACEMENT
--- NOTE | 2018-03-20 18:31 | NUR ---
REPORT TO PARI MARVIN
--- NOTE | 2018-03-20 19:30 | NUR ---
REPORT RECEIVED, CARE ASSUMED. INITIAL ASSESSMENT COMPLETED, SEE FLOWSHEET. NO SIGNS OF ACUTE DISTRESS. WILL CONTINUE TO MONITOR.
--- NOTE | 2018-03-20 21:35 | NUR ---
PT RESTING IN BED WITH EYES CLOSED. RECHECK OF K+ AND MAG REVIEWED, ELECTROLYTE PROTOCOL FOLLOWED. NO SIGNS OF ACUTE DISTRESS. WILL CONTINUE TO MONTIOR.
--- NOTE | 2018-03-20 23:27 | NUR ---
PT RESTING IN BED WITH EYES CLOSED. PT INFORMED STAFF THAT HE WAS INCONTINENT OF BM. PT WAS CLEANED AND BEDDING CHANGED. NO OTHER NEEDS NOTED AT THIS TIME. WILL CONTINUE TO MONITOR.
[2018-03-21] VITALS (11 sets, daily range): BP systolic 128–166; BP diastolic 34–107
--- NOTE | 2018-03-21 01:27 | NUR ---
PT RESTING IN BED WITH EYES CLOSED AT THIS TIME. NO NEEDS NOTED. NO SIGNS OF ACUTE DISTRESS. WILL CONTINUE TO MONITOR.
--- NOTE | 2018-03-21 03:22 | NUR ---
PT RESTING IN BED WITH EYES CLOSED AT THIS TIME. NO SIGNS OF ACUTE DISTRESS. WILL CONTINUE TO MONITOR.
[2018-03-21 04:19] LABS: BASOPHILS 0.1 % (0-2); EOSINOPHILS 0.3 % (0-7); HEMATOCRIT 26.6 % (42.0-54.0); HEMOGLOBIN 9.3 g/dL (13.5-17.5); IMMATURE GRANULOCYTES 0.8 % (0-5); LYMPHOCYTES 6.5 % (15-50); MCH 28.8 pg (26.0-34.0); MCV 82.4 fL (80.0-100.0); MEAN PLATELET VOLUME 11.8 fL (7.4-10.4); MONOCYTES 5.9 % (2-11); NEUTROPHILS 86.4 % (40-80); RBC 3.23 10x6/uL (4.20-6.10); WBC 19.3 10x3/uL (4.8-10.8)
[2018-03-21 04:27] LABS: PLATELET COUNT 221 10x3/uL (130-400)
[2018-03-21 04:32] LABS: CALC OSMOLALITY 269 mosm/kg (275-300); CHLORIDE - SERUM 101 mmol/L (98-107); GLUCOSE 101 mg/dL (74-106); MAGNESIUM - SERUM 1.1 mg/dL (1.8-2.4); POTASSIUM - SERUM 3.3 mmol/L (3.5-5.1); SODIUM 134 mmol/L (136-145); UREA NITROGEN 18 mg/dL (7-18); eGFR NON AFRICAN AMERICAN 87 mL/min (90-120)
[2018-03-21 04:43] LABS: CALCIUM 6.4 mg/dL (8.5-10.1); PHOSPHOROUS 2.5 mg/dL (2.5-4.9)
--- NOTE | 2018-03-21 05:28 | NUR ---
PT RESTING IN BED AT THIS TIME. NO ACUTE CHANGES NOTED. NO SIGNS OF ACUTE DISTRESS. WILL CONTINUE TO MONITOR.
--- NOTE | 2018-03-21 07:00 | NUR ---
PATIENT RESTING IN BED C STABLE VSS. CALL NDIAYE IN REACH. AWAKE ALERT AND ORIENTED. NO COMPLAITNS. WILL CONTINUE TO MONITOR
--- NOTE | 2018-03-21 08:30 | NUR ---
CALLED [facility] TO BRING UP PLASMALYTE ORDER FOR PATIENT.
--- NOTE | 2018-03-21 08:57 | NUR ---
TUBING CHANGED AND DATED. 1ST OF 4 GRAMS OF MAGNESIUM SULFATE HANGING. PT ATE 50 % BREAKFAST. RESTING IN BED C STABLE VS.
--- NOTE | 2018-03-21 09:54 | NUR ---
NUTRITION F//U PT TOLERATING REG DIET WITH 50% INTAKE BREAKFAST PER NURSING REPORT. NOTE POSSIBLE MOVE TO FLOOR. WILL CONTINUE TO PROVIDE DIET, MONITOR INTAKE. RD FOLLOWING
--- NOTE | 2018-03-21 10:09 | NUR ---
PATIENT RESTING IN BED C STABLE VS. TUBING CHANGED OUT FOR MAINTAINENCE FLUIDS WHEN PLASMOLYTE HUNG. 2ND BAG MAGNESIUM SULFATE INFUSING. WILL CONTINUE TO MONITOR. CALL NDIAYE IN REACH
--- NOTE | 2018-03-21 10:30 | NUR ---
MARISSA DARBY'S CAME AND FLUSHED PATIENTS LIVER ABSCESS DRAIN AT THIS TIME.
--- NOTE | 2018-03-21 10:45 | NUR ---
PATIENT HAD INCONTINENT BM. NURSE CLEANED AND CHANGED PAD. TURNED PATIENT TO RIGHT SIDE LYING POSITION. CALL NDIAYE IN REACH. NO COMPLAINTS.
--- NOTE | 2018-03-21 12:02 | NUR ---
DR. FUENTES SAW PATIENT. GAVE UPDATE ON PATIENT STATUS. INFORMED PATIENT MAY NEED PAIN MEDICATION RENEWED FOR PAIN AT DRAIN SITE. LAST (4TH) BAG OF MAGNESIUM SULFATE INFUSING RIGHT NOW. WILL CONTINUE TO MONITOR
--- NOTE | 2018-03-21 13:47 | NUR ---
PATIENT ATE NONE OF LUNCH TRAY. LEFT FRUIT CUP IN ROOM PER REQUEST. VSS. MONITORING..
--- NOTE | 2018-03-21 14:52 | NUR ---
DR. JEAN STOPPED BY TO SEE PATIENT. GAVE UPDATE ON STATUS. STATED SHE WILL BE DCING ANTIBIOTICS DUE NOW AND WILL PLACE ORDER FOR CEFTRIOXONE.
--- NOTE | 2018-03-21 16:29 | NUR ---
TOOK PATIENT TO CT OF CHEST. NO COMPLICATIONS OCCURRED.
--- NOTE | 2018-03-21 17:09 | NUR ---
PATIENT RESTING IN BED STABLE. BILI DRAIN HAS BEEN FLUSHED AND DRAINED--THICK BROWN DRAINAGE. VSS. SERVED DINNER TRAY. WILL CONTINUE TO MONITOR
--- NOTE | 2018-03-21 19:03 | MORECARE ---
CASE MANAGEMENT DISCHARGE SUMMARY PATIENT: KRISTINE PRO UNIT: [id number] ADM DATE: 03/13/18 AGE: 42 : 75 SEX: M ROOM/BED: D.2315 AUTHOR: ALFREDO HORTON PHYSICIAN: REFERRING PHYSICIAN: CRISTIN RICKETTS MD DATE OF SERVICE: 03/21/18 Discharge Plan Patient Name: KRISTINE PRO [facility] [facility] 1975 Planned Disposition: Home Anticipated Discharge Date: Discharge Date: Expected LOS: Initial Reviewer: [email or web address] Initial Review Date: 02/18/2018 Generated: 03/21/18 8:03 pm DCPIA - Discharge Planning Initial Assessment Updated by [email or web address]: Raven Hanson on 03/21/18 7:02 pm * Is the patient Alert and Oriented? Yes * How many steps to enter\exit or inside your home? * PCP unknown * Pharmacy [facility] * Preadmission Environment Home Alone * ADLs Independent * Equipment None * List name and contact numbers for known caregivers / representatives who currently or will assist patient after discharge: PASCUAL JACOBO - MOTHER- [phone] TAYLOR - SISTER [phone] * Verbal permission to speak to the caregivers and representatives has been obtained from the patient. N/A * Community resources currently utilized None * Additional services required to return to the preadmission environment? No * Can the patient safely return to the preadmission environment? Yes * Has this patient been hospitalized within the prior 30 days at any hospital? No Last DP export: 03/13/18 6:35 Patient Name: KRISTINE PRO Page [id number] at 1903 All edits/amendments must be made on the electronic document DICTATION DATE: 03/21/181902 CHARTER COACH DRIVER: JODY 03/21/181902 RPT#: [id number] DC DATE: STATUS: ADM IN [facility] [address] [place] [address] END OF REPORT
--- NOTE | 2018-03-21 19:07 | NUR ---
BEDSIDE SHIFT REPORT GIVEN BY DEPARTING RN. PT LAYING IN BED SHOWING NO S/S OF DISTRESS. ASSESSMENT COMPLETE AT THIS TIME. AAOX4. PERRLA. VSS. SEE FLOWSHEET FOR DETAILS. SAFETY MEASURES IN PLACE. CBIR.
[2018-03-21 19:10] LABS: AEROBE ID Final report (())
[2018-03-21 19:10] LABS: AEROBE ID Final report (())
--- NOTE | 2018-03-21 19:11 | MORECARE ---
CASE MANAGEMENT DISCHARGE SUMMARY PATIENT: KRISTINE PRO UNIT: [id number] ADM DATE: 03/13/18 AGE: 42 : 75 SEX: M ROOM/BED: D.2315 AUTHOR: CLIFFORD,DOC PHYSICIAN: REFERRING PHYSICIAN: CRISTIN RICKETTS MD DATE OF SERVICE: 03/21/18 Discharge Plan Patient Name: KRISTINE PRO Facility: [facility]:[place] : 1975 Planned Disposition: Home Anticipated Discharge Date: Discharge Date: Expected LOS: Initial Reviewer: [email or web address] Initial Review Date: 02/18/2018 Generated: 03/21/18 8:10 pm Comments DCP- Discharge Planning Updated by [email or web address]: Raven Hanson on 03/21/18 6:[address] LATE ENTRY 03/21/18 @ 1230 Patient Name: KRISTINE PRO Admission Status: ER Accout number: [id number] Admission Date: 03-13-2018 : 1975 Admission Diagnosis:HYPERTENSIVE CHRONIC KIDNEY DISEASE W STG 1-4/UNSP CHR Attending: CRISTIN RICKETTS Current LOS: 8 Anticipated DC Date: Planned Disposition: Home Primary Insurance: MEDICARE A & B Discharge Planning Comments: CM met with patient at bedside after obtaining verbal consent. Patient states he plans on returning home alone after discharge if possible. Patient states he will have family transport him home via private vehicle. Patient denies any discharge needs at this time. CM will continue to follow and assist as needed for discharge planning / needs. Music Department Chair: Raven Hanson DCPIA - Discharge Planning Initial Assessment Updated by [email or web address]: Raven Hanson on 03/21/18 7:02 pm * Is the patient Alert and Oriented? Yes * How many steps to enter\exit or inside your home? * PCP unknown * Pharmacy [facility] * Preadmission Environment Home Alone * ADLs Independent * Equipment None * List name and contact numbers for known caregivers / representatives who currently or will assist patient after discharge: PASCUAL JACOBO - MOTHER- [phone] TAYLOR - SISTER- [phone] * Verbal permission to speak to the caregivers and representatives has been obtained from the patient. N/A * Community resources currently utilized None * Additional services required to return to the preadmission environment? No * Can the patient safely return to the preadmission environment? Yes * Has this patient been hospitalized within the prior 30 days at any hospital? No Last DP export: 03/21/18 6:03 pm Patient Name: KRISTINE PRO Page [id number] at 1911 All edits/amendments must be made on the electronic document DICTATION DATE: 03/21/181909 CRITICAL POWER INSTALL TECHNICIAN: JODY 03/21/181909 RPT#: [id number] DC DATE: STATUS: ADM IN [facility] [address] [place] [address] END OF REPORT
--- NOTE | 2018-03-21 19:42 | NUR ---
SISTER PHONED FOR UPDATE ON PT. PASSWORD GIVEN. ALL QUESTIONS ANSWERED. SISTER ANXIOUS ABOUT BROTHER'S MENTAL WELL BEING. WANTS NURSE TO "PLEASE EXPLAIN TO HIM WHY HE IS GOING TO THE BATHROOM SO MUCH AND THAT IT IS A NORMAL RESPONSE TO THE MEDICATIONS", "PLEASE LET HIM KNOW WE WANT TO BE THERE BUT I HAVE TO WORK AND MOTHER HAD A DENTIST APPOINTMENT TODAY." "WE DON'T WANT HIM TO GIVE UP". ACCOMMODATED.
--- NOTE | 2018-03-21 22:50 | NUR ---
JEANCARLOS FUENTES OVER ELEVATED HR GOING TO THE 115'S AND LOW O2 READINGS IN THE MID 80'S WITH LABORED BREATHING WITH RESPIRATIONS IN THE 40'S. YOANDY SABILLON PHONED BACK. UPDATE GIVEN. MANAGEMENT ADVISOR WANTED TO KNOW WHAT OTHER DR WAS ON THE CASE. INFORMATION GIVEN. INFORMED NURSE TO CONTACT DR. ISBELL FOR FURTHER ORDERS. PORTABLE CHEST XRAY ORDERED STAT. CONSULT AHMAD IN AM. WILL CONTACT SUKHI. SUKHI PHONED BACK. UPDATE GIVEN. STAT ABG ORDERED. STAT AMMONIA ORDERED.
[2018-03-22] VITALS: BP 136/93
[2018-03-22 05:18] LABS: MAGNESIUM - SERUM 1.7 mg/dL (1.8-2.4); PHOSPHOROUS 2.7 mg/dL (2.5-4.9); VANCOMYCIN - RANDOM 4.5 ug/mL (10.0-20.0)
[2018-03-22 07:45] VITALS: BP 141/81
--- NOTE | 2018-03-22 07:50 | NUR ---
PT RESTING IN BED WITH EYES CLOSED. RESP SHALLOW AT TIMES. O2 ORDERED, BUT PT DOES CONTINUE TO REMOVE O2. O2 SATS 90%. EDUCATED PT REGARDING WEARING 02, HE DID COMPLY, ALLOWING TO PLACE O2 BACK IN PLACE @3L HIFLO NC. IV TO RIGHT FOREARM SITE WITHOUT REDNESS OR EDEMA. BILI DRAIN TO RIGHT LOWER QUAD, DRAINING BROWN DRAINAGE. F/C PATENT DRAINING YELLOW CONCENTRATED URINE. SCD'S IN PLACE. CL WITHIN REACH. ENCOURAGED TO CALL WITH NEEDS. CONTINUE TO MONITOR.
[2018-03-22 08:14] LABS: CALC OSMOLALITY 267 mosm/kg (275-300); CARBON DIOXIDE 20.5 mmol/L (21.0-32.0); CHLORIDE - SERUM 101 mmol/L (98-107); GLUCOSE 87 mg/dL (74-106); POTASSIUM - SERUM 4.1 mmol/L (3.5-5.1); SODIUM 134 mmol/L (136-145); UREA NITROGEN 16 mg/dL (7-18); eGFR NON AFRICAN AMERICAN 87 mL/min (90-120)
[2018-03-22 08:26] LABS: CALCIUM 6.5 mg/dL (8.5-10.1)
--- NOTE | 2018-03-22 09:30 | NUR ---
PT TAKEN VIA BED TO CT SCAN. PT KARLOS WELL. NO ACUTE DISTRESS NOTED.
--- NOTE | 2018-03-22 10:00 | NUR ---
PT RETURNED VIA BED FROM CT SCAN. NO ACUTE DISTRESS NOTED.
--- NOTE | 2018-03-22 10:55 | NUR ---
PT TAKEN VIA STRETCHER TO MRI FOR MRI OF BRAIN. NO ACUTE DISTRESS NOTED AT THIS TIME.
--- NOTE | 2018-03-22 11:45 | NUR ---
PT RETURNED VIA STRETCHER FROM MRI. NO ACUTE DISTRESS NOTED. ASSISTED TRANSFER BACK TO BED, PT KARLOS WELL. CL WITHIN REACH. DENIES PAIN OR FURTHER NEEDS.
[2018-03-22 13:03] LABS: APPEARANCE CLEAR (CLEAR); BACTERIA FEW /hpf (NONE SEEN); BILIRUBIN NEGATIVE (NEGATIVE); COLOR YELLOW (YELLOW); EPITHELIAL CELLS RARE /hpf (0-5); GLUCOSE NEGATIVE (NEGATIVE); KETONE NEGATIVE (NEGATIVE); MUCUS <1+ /lpf (NONE SEEN); NITRITE NEGATIVE (NEGATIVE); PROTEIN NEGATIVE (NEGATIVE); RED CELLS - URINE 0-5 /hpf (0-5); WHITE CELLS - URINE OCC /hpf (0-5)
[2018-03-22 13:25] VITALS: BP 150/84
--- NOTE | 2018-03-22 13:25 | NUR ---
PT RESTING IN BED WITH EYES CLOSED, NO ACUTE DISTRESS NOTED. OPENS EYES SPONTANEOUSLY. DENIES PAIN OR FURTHER NEEDS AT THIS TIME. CL WITHIN REACH. WILL CONTINUE TO MONITOR.
--- NOTE | 2018-03-22 17:09 | NUR ---
PT TRANSFERED TO ROOM 2236, REPORT CALLED TO LINN BRICEÑO. BILI DRAIN INTACT WELL F/C. PT KARLOS TRANSFER WELL.
--- NOTE | 2018-03-22 17:09 | NUR ---
RECIEVED PT FROM ICU VIA BED. AWAKE AND ALERT, IV IN RIGHT UPPER ARM, INFUSING, PATENT, DRESSING C/D/I, BILI DRAIN TO RIGHT SIDE OF ABD, CABALLERO CATHETER PRESENT, DENIES ANY CURRENT NEEDS OR DISCOMFORTS, BED LOWERED AND LOCKED, CALL LIGHT WITHIN REACH. CPOC
[2018-03-22 17:12] LABS: AEROBE ID Final report (())
--- NOTE | 2018-03-22 18:50 | NUR ---
LAYING IN BED, AWAKE AND ALERT, IV IN RIGHT UPPER ARM INFUSING FLUIDS, PATENT, SCD'S ON, DENIES ANY OTHER NEEDS OR DISCOMFORTS, BED LOWERED AND LOCKED, CALL LIGHT WITHIN REACH. CPOC
[2018-03-22 20:00] VITALS: BP 144/88
[2018-03-23] VITALS: BP 145/86
[2018-03-23 04:00] VITALS: BP 146/95
--- NOTE | 2018-03-23 04:43 | NUR ---
PATIENT IN BED WITH NO S/S OF DISTRESS RESPRATION EVEN AND UNLABORED CALL LIGHT IN REACH,
[2018-03-23 08:34] VITALS: BP 153/88
--- NOTE | 2018-03-23 08:55 | NUR ---
PATIENT RESTING SUPINE IN BED. RESPIRATIONS NONLABORED. BILI DRAIN PATENT WITH BROWN-BILE COLORED DRAINAGE PRESENT. IV PATENT WITH BANANA BAG AND ZOFRAN DRIP INFUSING. CABALLERO PATENT WITH CLEAR YELLOW URINE INFUSING, EDEMA TO GENITALS NOTED ATIVAN GIVEN FOR ANXIETY.
[2018-03-23 10:42] LABS: BASOPHILS 0.3 % (0-2); EOSINOPHILS 0.4 % (0-7); HEMATOCRIT 25.8 % (42.0-54.0); HEMOGLOBIN 8.8 g/dL (13.5-17.5); IMMATURE GRANULOCYTES 0.7 % (0-5); LYMPHOCYTES 7.8 % (15-50); MCHC 34.1 g/dL (31.0-37.0); MCV 85.1 fL (80.0-100.0); MEAN PLATELET VOLUME 10.7 fL (7.4-10.4); MONOCYTES 8.3 % (2-11); NEUTROPHILS 82.5 % (40-80); RBC 3.03 10x6/uL (4.20-6.10); RDW 15.4 % (11.5-14.5); WBC 14.4 10x3/uL (4.8-10.8)
[2018-03-23 10:53] LABS: ALBUMIN 1.1 g/dL (3.4-5.0); ALKALINE PHOSPHATASE 122 U/L (46-116); ALT (SGPT) 25 U/L (10-68); BILIRUBIN - TOTAL 0.67 mg/dL (0.2-1.3); CALC OSMOLALITY 276 mosm/kg (275-300); CARBON DIOXIDE 24.2 mmol/L (21.0-32.0); CHLORIDE - SERUM 105 mmol/L (98-107); CREATININE - SERUM 0.9 mg/dL (0.6-1.3); GLUCOSE 120 mg/dL (74-106); MAGNESIUM - SERUM 1.6 mg/dL (1.8-2.4); PHOSPHOROUS 3.1 mg/dL (2.5-4.9); POTASSIUM - SERUM 4.2 mmol/L (3.5-5.1); SODIUM 138 mmol/L (136-145); UREA NITROGEN 12 mg/dL (7-18); eGFR NON AFRICAN AMERICAN > 90 mL/min (90-120)
[2018-03-23 10:55] LABS: CALCIUM 6.9 mg/dL (8.5-10.1)
[2018-03-23 11:11] LABS: PLATELET COUNT 301 10x3/uL (130-400)
[2018-03-23 12:19] VITALS: BP 141/93
--- NOTE | 2018-03-23 14:16 | NUR ---
FLUSHED BILI DRAIN WITH 10CC NS
--- NOTE | 2018-03-23 14:52 | NUR ---
NOTIFIED DEVORAH NGUYEN OF LOW CALCIUM AND ALBUMIN. INSTRUCTED TO NOTIFY DR ALBA WITH LAB VALUES. UNABLE TO MAKE CONTACT WITH SR ALBA AND ASSOCIATES BY PHONE
--- NOTE | 2018-03-23 14:57 | NUR ---
LEFT VOICEMAIL WITH DR RAMÍREZ NURSE AT HIS OFFICE OF CALCIUM AND ALBUMIN LAB VALUES, WAITING RETURN CALL
--- NOTE | 2018-03-23 15:12 | NUR ---
DR ALBA RETURNED CALL CONCERNING LAB WITH NO CHANGES ORDERED AT THIS TIME
--- NOTE | 2018-03-23 15:37 | NUR ---
PATIENT RESTING IN BED. ATIVAN 1MG GIVEN FOR ANXIETY, RESPIRATIONS NONLABORED.
[2018-03-23 16:54] VITALS: BP 148/96
[2018-03-23 20:00] VITALS: BP 125/81
--- NOTE | 2018-03-23 20:20 | NUR ---
RESUMING CARE. PT IS ALERT AND LAYING IN BED. PT HAS A IV IN THE RIGHT FOREARM WITH A BANANA BAG RUNNING AT 125. BED IN THE LOWEST POSITION WITH CALL LIGHT IN REACH. WILL CONTINUE TO MONITOR PT AND FOLLOW PLAN OF CARE.
[2018-03-24] VITALS: BP 144/92
--- NOTE | 2018-03-24 00:56 | NUR ---
PT DRAIN WAS FLUSHED AT 2123 WITH 10ML OF NORMAL SALINE. OUT PUT AT THAT TIME WAS 100CC'S AND BROWN IN COLOR. BED IN THE LOWEST POSITION WITH CALL LIGHT IN REACH. WILL CONTINUE TO MONITOR PT AND FOLLOW PLAN OF CARE.
[2018-03-24 04:00] VITALS: BP 142/89
--- NOTE | 2018-03-24 06:27 | NUR ---
PT DRAIN WAS FLUSH WITH 10ML NS AT 0603. OUT OUT WAS STILL AT A 100 CC'S. THE COLOR WAS VERY BROWN. BED IN THE LOWEST POSITION WITH CALL LIGHT IN REACH. WILL CONTINUE TO MONITOR PT AND FOLLOW PLAN OF CARE.
[2018-03-24 06:58] LABS: ALBUMIN 1.2 g/dL (3.4-5.0); ALKALINE PHOSPHATASE 116 U/L (46-116); ALT (SGPT) 22 U/L (10-68); CALC OSMOLALITY 269 mosm/kg (275-300); CARBON DIOXIDE 25.2 mmol/L (21.0-32.0); CHLORIDE - SERUM 103 mmol/L (98-107); CREATININE - SERUM 0.9 mg/dL (0.6-1.3); GLUCOSE 86 mg/dL (74-106); MAGNESIUM - SERUM 1.6 mg/dL (1.8-2.4); PHOSPHOROUS 3.3 mg/dL (2.5-4.9); PROTEIN - SERUM 6.9 g/dL (6.4-8.2); SODIUM 136 mmol/L (136-145); UREA NITROGEN 10 mg/dL (7-18); VANCOMYCIN - RANDOM 0.6 ug/mL (10.0-20.0); eGFR NON AFRICAN AMERICAN > 90 mL/min (90-120)
[2018-03-24 07:00] LABS: CALCIUM 6.7 mg/dL (8.5-10.1)
[2018-03-24 07:58] LABS: HEMATOCRIT 26.3 % (42.0-54.0); HEMOGLOBIN 8.8 g/dL (13.5-17.5); MCH 29.3 pg (26.0-34.0); MCHC 33.5 g/dL (31.0-37.0); NEUTROPHILS 80.9 % (40-80); RDW 17.3 % (11.5-14.5); WBC 14.2 10x3/uL (4.8-10.8)
[2018-03-24 07:59] LABS: MCV 87.7 fL (80.0-100.0); PLATELET COUNT 215 10x3/uL (130-400)
--- NOTE | 2018-03-24 08:16 | NUR ---
PATIENT RESTING IN BED WITH NO NEEDS VOICED , BILI DRAIN PRESENT WITH BROWN-GREEN BILE COLORED DRAINAGE. CABALLERO PATENT WITH CLEAR YELLOW URINE TO BEDSIDE DRAINAGE. IV PATENT WITH MVI BAG INFUSING. CL IN REACH
[2018-03-24 09:11] VITALS: BP 147/93
--- NOTE | 2018-03-24 10:35 | NUR ---
IV RESITED IV TO RIGHT HAND D/T PATIENT PULLED OUT USING BSC. LAUREN BED ALARM PLACED, YELLOW GOWN, AND NONSKID SOCKS DUE TO ATIVAN GIVEN, INSTRUCTED PATIENT NOT TO GET OUT OF BED WITHOUT ASSISTANCE
--- NOTE | 2018-03-24 13:30 | EC ---
PATIENT:KRISTINE PRO DATE OF SERVICE: 03/13/18 SEX: M MEDICAL RECORD: [id number] DATE OF : [birth year] LOCATION:D.MS [place] AGE OF PATIENT: 42 ADMISSION DATE: 03/13/18 REFERRING PHYSICIAN: INTERPRETING PHYSICIAN: ESTIVEN GOYAL MD ECHOCARDIOGRAM REPORT ECHO CHARGES 5 ECHO LIMITED Date: 03/23/18 CLINICAL DIAGNOSIS: TACHYCARDIA/STREP BACTEREMIA ECHOCARDIOGRAPHIC MEASUREMENTS (adult normal given) AC root (d.<3.7cm) 0 cm LV Septum d (<1.2 cm> 0 cm Valve Excursion 0 cm LV Septum (systole) 0 cm Left Atria (s.<4.0cm> 0 cm LVPW d(<1.2cm) 0 cm RV (d.<2.3cm) 0 cm LVPW (sytole) 0 cm LV diastole(<5.6CM) 0 cm MV E-F(>70mm/sec) 0 cm LV systole 0 cm LVOT Diameter 0 cm MV exc.(>10mm) 0 cm Est.ejection fraction (50-75%) % DOPPLER: LVIT 0 cm/sec A 0 cm/sec E 0 cm/sec LA 0 cm/sec RVSP 0 mmHg LVOT 0 cm/sec AOP1/2T 0 m/s Asc. Ao 0 cm/sec RVOT 0 cm/sec RA 0 cm/sec PA 0 cm/sec AV Gradient Peak 0 mmHg AV Mean 0 mmHg AV Area 0 cm MV Gradient Peak 0 mmHg MV Mean 0 mmHg MV Area 0 cm COMMENTS: LIMITED STUDY (2-D ONLY) COMPLETE ECHO DONE ON 03/15/18 Transportation Program Director: 1 GRZEGORZ EWINGOE Launchman: 3 Dr. Hernandez TAPE# PACS Pericardial Effusion Y DATE OF SERVICE: LIMITED 2-D STUDY Grossly, LVH appears present. LV internal dimension is normal. Wall motion is normal. EF is greater than or equal to 55%. Aortic valve is tricuspid. No evidence of stenosis. No evidence of vegetation. Left atrium grossly appears normal. Mitral valve is normal with no prolapse or evidence of vegetation. Right-sided chambers appear grossly normal. Again, no evidence of vegetation in tricuspid valve. ECHOCARDIOGRAM REPORT [id number] KRISTINE PRO TRANSINT:[id number] Voice Confirmation ID: [id number] DOCUMENT ID: [id number] ESTIVEN GOYAL MD at 1330 CC: [id number] DICTATION DATE: 03/23/18 1412 MIN[employer]ER: 03/23/18 1552 ADM IN [facility] [address] [id number]
--- NOTE | 2018-03-24 14:59 | NUR ---
NUTRITION F/U PT TOLERATING REG LOW PHOS DIET WITH 100% INTAKE RECENT MEALS. WILL CONTINUE TO PROVIDE DIET, MONITOR PO INTAKE. RD FOLLOWING
[2018-03-24 20:29] VITALS: BP 136/93
--- NOTE | 2018-03-24 20:45 | NUR ---
RESUMING CARE. PT IS ALERT LAYING IN THE BED WATCHING TV. NO C/O VOICED AT THIS TIME. PT HAS A IV IN THE RIGHT HAND WITH A BANANA BAG INFUSING AT 125 AND A ZOFRAN DRIP INFUSING AT 4.7. BED IN THE LOWEST POSITION WITH CALL LIGHT IN REACH. SIDE RAILS UP X 2. WILL CONTINUE TO MONITOR PT AND FOLLOW PLAN OF CARE.
[2018-03-25 00:05] VITALS: BP 169/100
--- NOTE | 2018-03-25 01:59 | NUR ---
ASLEP IN BED WITH NO S/S OF DISTRESS, RESPRATIONS EVEN AND UNLABORED CALL LIGHT IN REACH,
[2018-03-25 04:49] VITALS: BP 149/94
[2018-03-25 05:31] LABS: ALBUMIN 1.2 g/dL (3.4-5.0); ALKALINE PHOSPHATASE 117 U/L (46-116); ALT (SGPT) 22 U/L (10-68); BILIRUBIN - TOTAL 0.66 mg/dL (0.2-1.3); CALC OSMOLALITY 266 mosm/kg (275-300); CHLORIDE - SERUM 102 mmol/L (98-107); GLUCOSE 98 mg/dL (74-106); POTASSIUM - SERUM 4.7 mmol/L (3.5-5.1); PROTEIN - SERUM 7.8 g/dL (6.4-8.2); SODIUM 134 mmol/L (136-145); UREA NITROGEN 11 mg/dL (7-18); eGFR NON AFRICAN AMERICAN 87 mL/min (90-120)
[2018-03-25 05:39] LABS: BASOPHILS 0.1 % (0-2); EOSINOPHILS 0.6 % (0-7); HEMATOCRIT 25.8 % (42.0-54.0); HEMOGLOBIN 8.5 g/dL (13.5-17.5); IMMATURE GRANULOCYTES 0.4 % (0-5); LYMPHOCYTES 11.9 % (15-50); MCH 28.5 pg (26.0-34.0); MCHC 32.9 g/dL (31.0-37.0); MCV 86.6 fL (80.0-100.0); MONOCYTES 8.4 % (2-11); NEUTROPHILS 78.6 % (40-80); RBC 2.98 10x6/uL (4.20-6.10); RDW 16.6 % (11.5-14.5); WBC 13.5 10x3/uL (4.8-10.8)
[2018-03-25 05:55] LABS: PLATELET COUNT 416 10x3/uL (130-400)
--- NOTE | 2018-03-25 07:20 | NUR ---
PT RESTING IN BED, EYES CLOSED. RESPIRATIONS EVEN AND UNLABORED. AROUSES TO VOICE. IV TO RIGHT HAND, SITE PATENT AND WITHOUT REDNESS OR SWELLING. BANANA BAD INFUSING @ 125ML/HR. PT HEP C+. PT ON ZOFRAN DRIP @ 4.7. PT HAS CABALLERO. PT ALERT AND ORIENTED X3. ON ELECTROLYTE PROTOCOL. BILIARY DRAIN TO RIGHT SIDE. NO C/O PAIN. NO S/S OF DISTRESS NOTED. CALL LIGHT IN REACH. PT DENIES ANYTHING FURTHER AT THIS TIME. WILL CONTINUE TO MONITOR.
[2018-03-25 08:49] VITALS: BP 143/98
[2018-03-25 11:45] VITALS: BP 145/99
--- NOTE | 2018-03-25 12:59 | NUR ---
IT HELP DESK ASSOCIATE NOTES- BILIARY DRAINAGE LIGHT GREEN. NO NAUSEA AT THIS TIME. NO PAIN REPORTED AT THIS TIME. NO FURTHER NEEDS
--- NOTE | 2018-03-25 18:51 | NUR ---
PT RESTING IN BED EYES OPEN. PT PULLED OUT IV, TRIED 2X'S TO RESITE, UNABLE TO DO SO. HAD ANOTHER NURSE TRY, SHE WAS UNABLE ALSO. GOING TO PASS ON TO ONCOMING NURSE TO SEE IF THAT NURSE CAN GET ACCESS. NO C/O PAIN. NO S/S OF DISTRESS NOTED. PT DENIES ANYTHING FURTHER AT THIS TIME. CALL LIGHT IN REACH. WILL CONTINUE TO MONITOR.
--- NOTE | 2018-03-25 20:48 | NUR ---
A/OX4. PT WANTS TO BE LEFT ALONE MOSTLY. RESITED IV TO LT HAND. ASKS FOR APPLE JUICE AND PUDDING. NO OTHER NEEDS AT THIS TIME.
[2018-03-26 07:16] LABS: ALBUMIN 1.3 g/dL (3.4-5.0); ALKALINE PHOSPHATASE 109 U/L (46-116); ALT (SGPT) 21 U/L (10-68); BILIRUBIN - TOTAL 0.63 mg/dL (0.2-1.3); CALC OSMOLALITY 266 mosm/kg (275-300); CALCIUM 7.3 mg/dL (8.5-10.1); CARBON DIOXIDE 23.7 mmol/L (21.0-32.0); CHLORIDE - SERUM 101 mmol/L (98-107); CREATININE - SERUM 0.9 mg/dL (0.6-1.3); GLUCOSE 105 mg/dL (74-106); POTASSIUM - SERUM 4.6 mmol/L (3.5-5.1); PROTEIN - SERUM 7.9 g/dL (6.4-8.2); SODIUM 134 mmol/L (136-145); UREA NITROGEN 10 mg/dL (7-18); eGFR NON AFRICAN AMERICAN > 90 mL/min (90-120)
[2018-03-26 07:41] LABS: BASOPHILS 0.3 % (0-2); EOSINOPHILS 0.4 % (0-7); HEMOGLOBIN 8.3 g/dL (13.5-17.5); IMMATURE GRANULOCYTES 0.4 % (0-5); LYMPHOCYTES 11.2 % (15-50); MCH 28.7 pg (26.0-34.0); MCHC 33.2 g/dL (31.0-37.0); MCV 86.5 fL (80.0-100.0); MEAN PLATELET VOLUME 10.9 fL (7.4-10.4); MONOCYTES 11.1 % (2-11); NEUTROPHILS 76.6 % (40-80); PLATELET COUNT 406 10x3/uL (130-400); RBC 2.89 10x6/uL (4.20-6.10); WBC 13.8 10x3/uL (4.8-10.8)
--- NOTE | 2018-03-26 08:10 | NUR ---
PT LYING IN BED, EYES OPEN SPONTANEOUSLY. NO ACUTE DISTRESS NOTED. IV TO LEFT HAND WITH PLASMALYTE 7.4 @ 125ML/HR, ZOFRAN 4.7ML/HR INFUSING VIA PUMP. SITE WITHOUT REDNESS OR EDEMA. DENIES PAIN AT THIS TIME. BILI DRAIN TO RIGHT QUAD, DRAINING LIGHT BROWN DRAINAGE. F/C PATENT TO GRAVITY DRAINING YELLOW URINE. DENIES FURTHER NEEDS AT THIS TIME. CL WITHIN REACH. ENCOURAGED TO CALL WITH NEEDS. CONTINUE POC
[2018-03-26 09:00] VITALS: BP 146/89
--- NOTE | 2018-03-26 10:15 | NUR ---
PT RESTING IN BED WITH EYES CLOSED. RESP EVEN AND UNLABORED. AWAKENS UPON ENTERING ROOM. DENIES NEEDS AT THIS TIME. CL WITHIN REACH. ENCOURAGED TO CALL WITH NEEDS.
[2018-03-26 12:00] VITALS: BP 132/80
--- NOTE | 2018-03-26 12:15 | NUR ---
PT RESTING IN BED DISPLAYING IRRITABILITY AND AGITATION AND RESTLESSNESS. HE IS REQUESTING ATIVAN TO HELP TO "CALM" HIM DOWN. INSTRUCTED PT THAT STAFF WOULD ADMINISTER MEDICATIONS PER ORDERS.
[2018-03-26 16:00] VITALS: BP 131/85
--- NOTE | 2018-03-26 19:50 | NUR ---
LYING IN BED. ALERT AND ORIENTED TO SELF, PLACE AND SITUATION. CONFUSED TO TIME. IRRITABLE AND DEMANDING. RESP EVEN AND NONLABORED. ABD DISTENDED AND SOFT. BILI DRAIN NOTED TO RT SIDE WITH THICK YELLOW FLUID IN BAG. CABALLERO CATH PATENT AND DRAINING DK YELLOW URINE. MVI INFUSING @ 125 ML/HR WITH ZOFRAN DRIP INFUSING @ 4.7 ML/HR IN LT HAND WITHOUT DIFF. REFUSES TO WEAR SCDS. NO EDEMA NOTED. C/O PAIN IN ABD.SR ELEVATED X2. CL IN REACH.
[2018-03-26 20:04] VITALS: BP 154/81
--- NOTE | 2018-03-26 21:12 | NUR ---
MEDICATED WITH TYLENOL FOR C/O ABD PAIN. TELLING STAFF HE WANTS FENTANYL. EXPLAINED THAT FENTANYL IS NOT ORDERED. AGITATED AND YELLING ABOUT IV PUMP BEEPING.
[2018-03-27] VITALS (13 sets, daily range): BP systolic 123–214; BP diastolic 72–115
--- NOTE | 2018-03-27 00:15 | NUR ---
MEDICATED WITH ATIVAN FOR ANXIETY/AGITATION. PT APOLOGIZED TO STAFF FOR BEING "RUDE". CL IN REACH.
[2018-03-27 07:10] LABS: BASOPHILS 0.4 % (0-2); EOSINOPHILS 0.5 % (0-7); HEMATOCRIT 25.2 % (42.0-54.0); HEMOGLOBIN 8.2 g/dL (13.5-17.5); IMMATURE GRANULOCYTES 0.6 % (0-5); LYMPHOCYTES 11.6 % (15-50); MCH 28.6 pg (26.0-34.0); MCHC 32.5 g/dL (31.0-37.0); MCV 87.8 fL (80.0-100.0); MEAN PLATELET VOLUME 10.7 fL (7.4-10.4); MONOCYTES 9.3 % (2-11); NEUTROPHILS 77.6 % (40-80); PLATELET COUNT 374 10x3/uL (130-400); RBC 2.87 10x6/uL (4.20-6.10); RDW 17.3 % (11.5-14.5)
--- NOTE | 2018-03-27 07:15 | NUR ---
PT LYING IN BED WITH EYES CLOSED. RESP EVEN AND UNLABORED. NO ACUTE DISTRESS NOTED. MILD ANXIETY NOTED THIS AM, WITH RESTLESSNESS. BILI DRAIN INTACT TO RIGHT UPPER QUAD WITH SCANT AMOUNT OF YELLOW DRAINAGE NOTED. IV TO LEFT HAND WITH PLASMALYTE 7.4 @ 125ML/HR AND ZOFRAN @ 4.7ML/HR INFUSING VIA PUMP. SITE WITHOUT REDNESS OR EDEMA. DENIES PAIN AT THIS TIME. DENIES FURTHER NEEDS. CL WITHIN REACH. ENCOURAGED TO CALL WITH NEEDS. CONTINUE POC.
[2018-03-27 07:21] LABS: WBC 10.3 10x3/uL (4.8-10.8)
[2018-03-27 07:34] LABS: ALBUMIN 1.2 g/dL (3.4-5.0); ALKALINE PHOSPHATASE 102 U/L (46-116); ALT (SGPT) 17 U/L (10-68); BILIRUBIN - TOTAL 0.46 mg/dL (0.2-1.3); CALC OSMOLALITY 268 mosm/kg (275-300); CALCIUM 7.4 mg/dL (8.5-10.1); CARBON DIOXIDE 23.9 mmol/L (21.0-32.0); CHLORIDE - SERUM 102 mmol/L (98-107); CREATININE - SERUM 0.9 mg/dL (0.6-1.3); GLUCOSE 103 mg/dL (74-106); POTASSIUM - SERUM 4.7 mmol/L (3.5-5.1); PROTEIN - SERUM 7.7 g/dL (6.4-8.2); SODIUM 135 mmol/L (136-145); UREA NITROGEN 10 mg/dL (7-18); eGFR NON AFRICAN AMERICAN > 90 mL/min (90-120)
--- NOTE | 2018-03-27 15:10 | NUR ---
PT CALLED OUT FOR HELP. UPON ENTERING ROOM, PT WAS FOUND TO HAVE SHALLOW LABORED BREATHING WITH COMPLAINTS OF LOWER BACK PAIN AND PAIN IN LEFT UPPER HIP. HE DOES REPORT THIS BEING A CHRONIC PAIN DUE TO OLD INJURY VS TAKEN, O2 SAT 94-95% @ TIMES DROPPING TO 88%, HR 151, BP 212/114 TEMP 98.6. CONTACTED GRICELDA MARQUEZ NEW ORDERS NOTED. 1530 BP 214/108 APRESOLINE 10MG GIVEN IV PUSH X 1 TIME PER ORDERS. O2 @ 3L PLACED PER NC. 1535 BP 174/115 HR 140, O2 SAT 94%. 1547 BP 154/93 HR 134, TALKED WITH PT REGARDING NEED TO START SECONDARY IV FOR CT SCAN PT IS REFUSING AT THIS TIME. STATES"GIVE ME A LITTLE BIT" ENCOURAGED COMPLIANCE STRESSING IMPORTANCE OF CT SCAN. HE CONTINUED TO REFUSE. 1600 BP 152/90 HR 134, SECONDARY IV PLACED LAB WORK COMPLETED ORDERED. [address] 135, BP 134/76. 1625 BP 131/73 HR 129. 1730 CONTACTED GRICELDA MARQUEZ REGARDING EKG, AND ELEVATED D-DIMER. SHE ORDERS CARDIOLOGY CONSULT. [address] GARRISON NEW ORDERS NOTED FOR DIGOXIN 0.25MG. 1755 PT RESP STATUS UNLABORED. O2 SAT 96%. PT CALMER, MORE RELAXED BP 129/72 HR 112. 1815 PT TAKEN VIA BED TO RADIOLOGY FOR CT SCAN
[2018-03-27 17:14] LABS: CKMB 0.3 U/L (0.0-3.6); CREATINE KINASE 57 UL (21-232); TROPONIN-I 0.016 ng/mL (0.000-0.060)
--- NOTE | 2018-03-27 19:45 | NUR ---
LYING IN BED. ALERT AND ORIENTED TO SELF AND PLACE. CONFUSED TO TIME AND SITUATION. ANXIOUS AND IRRITABLE. RESP EVEN AND NONLABORED. REFUSES TO WEAR O2. TELEMETRY SHOWS ST WITH RATE OF 104. CABALLERO CATH PATENT AND DRAINING DK YELLOW URINE. BILI DRAIN TO RT SIDE NOTED WITH THICK YELLOW FLUID IN TUBING. ABD IS DISTENDED. MVI INFUSING @ 125 ML/HR AND ZOFRAN DRIP INFUSING @ 4.7 ML/HR IN LT HAND WITHOUT DIFF. SALINE LOCK NOTED TO RT AC. DENIES PAIN AT THIS TIME. SR ELEVATED X2. CL IN REACH.
--- NOTE | 2018-03-27 20:35 | NUR ---
MEDICATED WITH ATIVAN FOR ANXIETY AND AGITATION. CL IN REACH.
[2018-03-27 22:54] LABS: CKMB 0.2 U/L (0.0-3.6); CREATINE KINASE 17 UL (21-232); TROPONIN-I 0.016 ng/mL (0.000-0.060)
--- NOTE | 2018-03-27 23:11 | NUR ---
PT REFUSES TO SIGN CONSENTS FOR PROCEDURE TOMORROW. STATES THIS IS THE FIRST TIME ANYONE HAS MENTIONED IT TO HIM. NOTIFIED CHARGE NURSE OF THIS.
[2018-03-28 00:41] VITALS: BP 164/84
[2018-03-28 04:52] VITALS: BP 143/89
[2018-03-28 05:46] LABS: BASOPHILS 0.4 % (0-2); EOSINOPHILS 0.4 % (0-7); HEMATOCRIT 24.5 % (42.0-54.0); IMMATURE GRANULOCYTES 0.3 % (0-5); LYMPHOCYTES 10.1 % (15-50); MCH 28.8 pg (26.0-34.0); MCHC 32.7 g/dL (31.0-37.0); MCV 88.1 fL (80.0-100.0); MEAN PLATELET VOLUME 11.2 fL (7.4-10.4); MONOCYTES 9.4 % (2-11); NEUTROPHILS 79.4 % (40-80); PLATELET COUNT 338 10x3/uL (130-400); RBC 2.78 10x6/uL (4.20-6.10); RDW 17.4 % (11.5-14.5); WBC 11.6 10x3/uL (4.8-10.8)
[2018-03-28 06:06] LABS: ALBUMIN 1.4 g/dL (3.4-5.0); ALKALINE PHOSPHATASE 114 U/L (46-116); ALT (SGPT) 17 U/L (10-68); BILIRUBIN - TOTAL 0.44 mg/dL (0.2-1.3); CALC OSMOLALITY 264 mosm/kg (275-300); CALCIUM 7.5 mg/dL (8.5-10.1); CHLORIDE - SERUM 100 mmol/L (98-107); CKMB 0.2 U/L (0.0-3.6); CREATINE KINASE 12 UL (21-232); CREATININE - SERUM 0.9 mg/dL (0.6-1.3); GLUCOSE 105 mg/dL (74-106); POTASSIUM - SERUM 4.3 mmol/L (3.5-5.1); PROTEIN - SERUM 8.1 g/dL (6.4-8.2); SODIUM 133 mmol/L (136-145); UREA NITROGEN 9 mg/dL (7-18); eGFR NON AFRICAN AMERICAN > 90 mL/min (90-120)
--- NOTE | 2018-03-28 06:19 | NUR ---
PT REFUSED TO LET HONG DO HIBACLEANZ FOR PROCEDURE TODAY. HE ASKED STAFF TO CALL HIS MOTHER FOR HIM AND HE SPOKE TO HER. HE STATES SHE WILL BE HERE SHORTLY THEN ASKS STAFF FOR SOMETHING TO DRINK. INFORMED PT THAT HE IS NPO. STAFF EXPLAINED PROCEDURE PLANNED FOR TODAY. PT STATES HE WOULD SIGN THE CONSENTS. CONSENTS SIGEND AND WITNESSED PER STAFF X2. SPOKE WITH PTS MOTHER AND EXPLAINED THE PLAN. SHE VERBALIZED UNDERSTANDING OF THIS.
[2018-03-28 06:23] LABS: TROPONIN-I < 0.017 ng/mL (0.000-0.060)
[2018-03-28 07:24] LABS: INR 1.47 (0.85-1.17); PROTIME 17.3 SECONDS (11.6-15.0)
--- NOTE | 2018-03-28 08:23 | NUR ---
PT RESTING IN BED WITH EYES OPEN RESPIRATIONS ARE EVEN AND UNLABORED. CABALLERO CATHETER DRAINING FREELY WITH DARK YELLOW URINE NOTED. BILI DRAIN TO RIGHT SIDE PRESENT. PT ASKING FOR DRINK OF WATER. PT REORIENTED TO SITUATION AND PENDING SURGICAL PROCEDURE. PT REPORTS PAIN IN BACK AREA 09/21. PT DENIES PRESENCE OF N/V. SCDS PLACED ON PT AND TURNED ON. BED IS IN LOWEST POSITION. CALL LIGHT AND BEDSIDE TABLE ARE WITHIN REACH. WILL CONT TO MONITOR.
[2018-03-28 09:14] VITALS: BP 141/95
[2018-03-28 12:00] VITALS: BP 141/90
--- NOTE | 2018-03-28 14:47 | NUR ---
PT OFF FLOOR VIA BED FOR TRANSPORT FOR PROCEDURE.
[2018-03-28 16:30] VITALS: BP 156/73
--- NOTE | 2018-03-28 16:30 | NUR ---
PT ARRIVED TO FLOOR VIA BED. VSS STABLE. SEE FLOW SHEET. DRESSING TO RIGHT BILI DRAIN C/D/I. CABALLERO CATHETER DRAINING FREELY. FAMILY AT BEDSIDE. PT REQUESTS APPLE JUICE. WILL ACCOMODATE. PT DENIES PRESENCE OF PAIN AND N/V AT THIS TIME. BED IS IN LOWEST POSITION. CALL LIGHT AND BEDSIDE TABLE ARE WITHIN REACH. WILL CONT TO MONITOR.
--- NOTE | 2018-03-28 19:30 | NUR ---
awake and alert..srx2 bed low and call light in place...answers all questions apropriately...banana bag not running. i dced fro iv line..occupational therapy professor dilaudid active. iv sites to left hand and rt ac no edema or swelling...o2 is not in place pt states i do not need it..bilidrain obsreved and novoa cath with pedro urine.checked telemetery sr at 79.. denies needs at this time apple juice provided. scd in place pulses present...bowl sounds hypo but times 4
--- NOTE | 2018-03-28 20:07 | NUR ---
error in last note...pt has no dilauded associate product integrity engineer
--- NOTE | 2018-03-28 20:35 | NUR ---
requested sleeo aid states im upset and can not sleep ativan given 1mg ivp
[2018-03-28 21:52] VITALS: BP 125/71
--- NOTE | 2018-03-28 22:00 | NUR ---
TEMP OF 100.6 ...I HAD JUST GIVEN TYLENOL FOR PAIN WILL MONITOR
--- NOTE | 2018-03-28 22:19 | NUR ---
ASSISTED TO TOILET WITH [facility]
--- NOTE | 2018-03-29 01:24 | NUR ---
RESIDENT HAD AN EXTREMLY COPIUS AMOUNT OF LOOSE STOOL
--- NOTE | 2018-03-29 02:25 | NUR ---
AT REST WITH EYES CLOSED BED LOW AND SRX2 CALL LIGHT IN REACH..CABALLERO TO GRAVITY WITH DARK LUDY URINE SCDs IN PLACE
[2018-03-29 04:50] VITALS: BP 134/81
--- NOTE | 2018-03-29 04:58 | NUR ---
RESTIN IN BED NO APPARENT DISTRESS CALL LIGHT IN REACH IV INFUSING WITHOUT DIFFICULTY
[2018-03-29 06:14] LABS: BASOPHILS 0.6 % (0-2); EOSINOPHILS 0.6 % (0-7); HEMOGLOBIN 7.8 g/dL (13.5-17.5); IMMATURE GRANULOCYTES 0.4 % (0-5); LYMPHOCYTES 12.7 % (15-50); MCH 28.7 pg (26.0-34.0); MCHC 32.5 g/dL (31.0-37.0); MCV 88.2 fL (80.0-100.0); MEAN PLATELET VOLUME 10.1 fL (7.4-10.4); MONOCYTES 10.2 % (2-11); NEUTROPHILS 75.5 % (40-80); PLATELET COUNT 317 10x3/uL (130-400); RBC 2.72 10x6/uL (4.20-6.10); RDW 17.5 % (11.5-14.5)
[2018-03-29 06:21] LABS: WBC 8.5 10x3/uL (4.8-10.8)
[2018-03-29 06:40] LABS: ALBUMIN 1.3 g/dL (3.4-5.0); ALKALINE PHOSPHATASE 110 U/L (46-116); ALT (SGPT) 17 U/L (10-68); BILIRUBIN - TOTAL 0.37 mg/dL (0.2-1.3); CALC OSMOLALITY 266 mosm/kg (275-300); CALCIUM 7.4 mg/dL (8.5-10.1); CARBON DIOXIDE 23.3 mmol/L (21.0-32.0); CHLORIDE - SERUM 100 mmol/L (98-107); GLUCOSE 148 mg/dL (74-106); SODIUM 132 mmol/L (136-145); UREA NITROGEN 11 mg/dL (7-18); eGFR NON AFRICAN AMERICAN 87 mL/min (90-120)
--- NOTE | 2018-03-29 07:43 | NUR ---
PT RESTING IN BED WITH EYES CLOSED. RESPIRATIONS ARE EVEN AND UNLABORED. CABALLERO CATHETER DRAINING FREELY. BILI DRAIN WITH SEROSANGUINEOUS FLUID NOTED IN COLLECTION BAG. PT IS EASILY AROUSED WITH VERBAL STIMULATION. PT REPORTS PAIN 4/10 BUT DENIES NEEDS AT THIS TIME. FAMILY IS AT BEDSIDE. BED IS IN LOWEST POSITION. CALL LIGHT AND BEDSIDE TABLE ARE WITHIN REACH. WILL CONT TO MONITOR.
--- NOTE | 2018-03-29 08:29 | NUR ---
SPOKE WITH GLENN WITH ULTRASOUND. PT IS TO BE NPO UNTIL ULTRASOUND IS COMPLETED. WILL INFORM PT AND PLACE SIGN ON DOOR.
[2018-03-29 08:33] VITALS: BP 123/81
--- NOTE | 2018-03-29 08:39 | NUR ---
PT INFORMED OF NPO STATUS, PT STATES THAT HE WILL BE EATING BREAKFAST AND THEN WILL BEGIN NPO STATUS. PT EDUCATED ON PROCEDURE AND PT VERBALIZED UNDERSTANDING. WILL START NPO STATUS AFTER BREAKFAST.
--- NOTE | 2018-03-29 09:59 | NUR ---
SPOKE WITH ELIZABETH IN NUCLEAR MED. HIDA SCAN WILL BE ON 03-30-18. PT IS TO BE NPO AFTER MIDNIGHT AND NO PAIN MEDICATIONS AFTER MIDNIGHT.
--- NOTE | 2018-03-29 10:45 | NUR ---
Rehab Note- Acute Inpatient Rehab prescreen order received. THe patient continues to have an acute work up. Has a pending PT eval to assess the patient's functional level. Will continue to follow at this time. Thank you for this referral! Natali Hernandez RN CLinical Liaison, [facility] Rehab
--- NOTE | 2018-03-29 12:11 | MORECARE ---
CASE MANAGEMENT DISCHARGE SUMMARY PATIENT: KRISTINE PRO UNIT: [id number] ADM DATE: 03/13/18 AGE: 42 : 75 SEX: M ROOM/BED: D.2236 AUTHOR: ALFREDO HORTON PHYSICIAN: REFERRING PHYSICIAN: CRISTIN RICKETTS MD DATE OF SERVICE: 03/29/18 Discharge Plan Patient Name: KRISTINE PRO Facility: [facility]:[place] : 1975 Planned Disposition: Home Anticipated Discharge Date: Discharge Date: Expected LOS: Initial Reviewer: [email or web address] Initial Review Date: 02/18/2018 Generated: 03/29/18 1:11 pm Comments DCP- Discharge Planning Updated by [email or web address]: Dunia Tavarez on 03/29/18 11:[address] Spoke with patient's mother per her request. She is requesting her son go to inpatient rehab here if possible. I explained that he would need a qualifying diagnosis for inpatient rehab. I discussed the availability of home health as well when discharged. She states her son is very independent and she thinks with rehab, he can go home without home health, but it will be a consideration. States he may go live with her sister post discharge. CM will continue to follow and assist with discharge planning/needs. DCP- Discharge Planning Updated by [email or web address]: Raven Hanson on 03/21/18 6:[address] LATE ENTRY 03/21/18 @ 1230 Patient Name: KRISTINE PRO Admission Status: ER Accout number: [id number] Admission Date: 03-13-2018 : 1975 Admission Diagnosis:HYPERTENSIVE CHRONIC KIDNEY DISEASE W STG 1-4/[facility]SP [facility] Attending: CRISTIN RICKETTS Current LOS: 8 Anticipated DC Date: Planned Disposition: Home Primary Insurance: MEDICARE A & B Discharge Planning Comments: CM met with patient at bedside after obtaining verbal consent. Patient states he plans on returning home alone after discharge if possible. Patient states he will have family transport him home via private vehicle. Patient denies any discharge needs at this time. CM will continue to follow and assist as needed for discharge planning / needs. Home Theater Installer: Raven Hanson DCPIA - Discharge Planning Initial Assessment Updated by [email or web address]: Raven Hanson on 03/21/18 7:02 pm * Is the patient Alert and Oriented? Yes * How many steps to enter\exit or inside your home? * PCP unknown * Pharmacy [facility] * Preadmission Environment Home Alone * ADLs Independent * Equipment None * List name and contact numbers for known caregivers / representatives who currently or will assist patient after discharge: PASCUAL JACOOB - MOTHER- [phone] TAYLOR - SISTER- [phone] * Verbal permission to speak to the caregivers and representatives has been obtained from the patient. N/A * Community resources currently utilized None * Additional services required to return to the preadmission environment? No * Can the patient safely return to the preadmission environment? Yes * Has this patient been hospitalized within the prior 30 days at any hospital? No Last DP export: 03/21/18 6:11 pm Patient Name: KRISTINE PRO Page [id number] at 1211 All edits/amendments must be made on the electronic document DICTATION DATE: 03/29/18 1211 ADVERTISING DISPATCH CLERK: JODY 03/29/18 1211 RPT#: [id number] DC DATE: STATUS: ADM IN [facility] [address] [place] [address] END OF REPORT
[2018-03-29 15:50] VITALS: BP 130/83
--- NOTE | 2018-03-29 19:10 | NUR ---
AWAKE C/O "NOT FEELING WELL AT ALL" lcta BOWEL SOUNDS X4 CABALLERO DRAINING LUDY URINE AND BILI DRAIN IN PLACE...SKIN WARM AND DRY ABLE TO REPOSITION WELL IN BED. C/O NAUSEA.. ZOFRAN AT 4.7 CONT GTT RESTARTED
[2018-03-29 21:50] VITALS: BP 138/99
--- NOTE | 2018-03-29 23:32 | NUR ---
BLOOD TRANSFUSION OF PACKED RED BLOOD CELLS CHECKED WITH contracts attorney AND SHE BEGAN THE TRANSFUSION AT THIS TIME.
--- NOTE | 2018-03-29 23:58 | NUR ---
BLOOD TRANSFUSION IN PROGRESS. VS STABLE LCTA AT THIS TIME.SKIN WARM AND DRY IV SITE WITH NO REDNESS OR SWELLING... NO RASH ON SKIN NO SHORTNESS OF BREATH
--- NOTE | 2018-03-30 00:31 | NUR ---
BLOOD TRANSFUSION CONTINUES..VS WNL SKIN WARM AND DRY....NPO AT THIS TIME TILL PROCEDURE
--- NOTE | 2018-03-30 01:39 | NUR ---
BLOOD TRANSFUSION CONTINUES...99.5 TEMP RESP 16 PULSE IS TACHY AT 104 PT AROUSES EASILY NO RASH IV SITE WNL
--- NOTE | 2018-03-30 02:51 | NUR ---
CONTINUES TO RECIEVE BLOOD ...PT IS UPSET THAT HE CAN NOT RECIEVE PAIN MEDS OR ANYTHING BY MOUTH. I HAVE ATTEMPTED TO EDUCATE ON REASONING...RESP EVEN AND UNLABORED LCTA
--- NOTE | 2018-03-30 03:20 | NUR ---
BLOOD PRODUCT COMPLETE AND NS STARTED...VS 99.1 98 16 136/98 RESTING WITH EYES CLOSED NO REACTIONS TO TRANSFUSION NOTED
--- NOTE | 2018-03-30 03:32 | NUR ---
BLOOD PRODUCT COMPLETELY REMOVED FROM PT ...COMPLETE ADNINISTRATION OF PRODUCT ACHIEVED ...ZOFRAN AT 4.7 CONTINUED
[2018-03-30 05:08] LABS: BASOPHILS 0.5 % (0-2); EOSINOPHILS 0.4 % (0-7); HEMATOCRIT 28.2 % (42.0-54.0); HEMOGLOBIN 9.2 g/dL (13.5-17.5); IMMATURE GRANULOCYTES 0.5 % (0-5); LYMPHOCYTES 15.4 % (15-50); MCH 28.5 pg (26.0-34.0); MCHC 32.6 g/dL (31.0-37.0); MCV 87.3 fL (80.0-100.0); MEAN PLATELET VOLUME 10.3 fL (7.4-10.4); MONOCYTES 9.5 % (2-11); NEUTROPHILS 73.7 % (40-80); PLATELET COUNT 336 10x3/uL (130-400); RBC 3.23 10x6/uL (4.20-6.10); RDW 17.2 % (11.5-14.5); WBC 7.9 10x3/uL (4.8-10.8)
[2018-03-30 05:26] VITALS: BP 136/98
[2018-03-30 05:33] LABS: ALBUMIN 1.4 g/dL (3.4-5.0); ALKALINE PHOSPHATASE 105 U/L (46-116); ALT (SGPT) 17 U/L (10-68); BILIRUBIN - TOTAL 0.61 mg/dL (0.2-1.3); CALC OSMOLALITY 264 mosm/kg (275-300); CALCIUM 7.7 mg/dL (8.5-10.1); CARBON DIOXIDE 24.8 mmol/L (21.0-32.0); CHLORIDE - SERUM 100 mmol/L (98-107); CREATININE - SERUM 0.8 mg/dL (0.6-1.3); GLUCOSE 106 mg/dL (74-106); POTASSIUM - SERUM 4.2 mmol/L (3.5-5.1); PROTEIN - SERUM 8.4 g/dL (6.4-8.2); SODIUM 133 mmol/L (136-145); UREA NITROGEN 9 mg/dL (7-18); eGFR NON AFRICAN AMERICAN > 90 mL/min (90-120)
[2018-03-30 08:49] VITALS: BP 136/89
--- NOTE | 2018-03-30 09:08 | NUR ---
PT RESTING IN BED. UPSET ABOUT BEING "NPO AND NOT HAVING SCAN UNTIL 1:30." VERY DEMANDING. MOTHER AT BEDSIDE. EXPLAINED TO PT THE AMOUNT OF PEOPLE HAVING PROCEDURE DONE AND THEY WOULD GET TO HIM FIDEL. NO S/S OF ACUTE DISTRESS. CL IN PLACE.
[2018-03-30 12:56] VITALS: BP 123/79
--- NOTE | 2018-03-30 13:44 | NUR ---
NUTRITION F/U PT CURRENTLY NPO FOR TEST. TO RESUME REG DIET AFTER. WILL PROVIDE DIET WHEN RESUMED. RD FOLLOWING
[2018-03-30 16:48] VITALS: BP 134/83
--- NOTE | 2018-03-30 19:10 | NUR ---
RESTING WITH EYES CLOSEWD ..DID NOT AROUSE AT THIS TIME MOTHER IS AT BEDSIDE ...RESP EVEN AND UN LABORED AT THIS TIME SR 93 ON TELEMETRY...NO EDEMA IN LOWER EXTREMITIES..BED LOW SRX2 AND CALL LIGHT IS IN REACH
--- NOTE | 2018-03-30 19:46 | NUR ---
PT RESTING IN BED WITH EYES CLOSED. CHEST RISING AND FALLING. NO S/S OF ACUTE DISTRESS. CL IN PLACE.
--- NOTE | 2018-03-30 20:03 | NUR ---
APROACHED PT ABOUT GALLBLADDER REMOVAL..PT BECAME UPSET AND SAID "NO WAY IM HAVING THAT DONE ...NO ONE HAS TALKED TO ME..NO DOCTOR HAS SAID THAT" ASKING NOW FOR ATIVAN. I WILL MAKE CONSENTS AND APROACH AGAIN LATER. ATTEMPTED TO EDUCATE PATIENT ON IMPORTANCE OF REMOVAL.
--- NOTE | 2018-03-30 20:25 | NUR ---
ATIVAN DELIVERED...PT INSISTING MOTHER CAN SIGN CONSENTS...WILL HOLD FOR NOW
[2018-03-30 21:23] VITALS: BP 148/93
[2018-03-31] VITALS (9 sets, daily range): BP systolic 119–139; BP diastolic 70–95; Ht 165.1 cm; Wt 115.7 kg
--- NOTE | 2018-03-31 00:28 | NUR ---
BED LOW SRX2 AND CALL LIGHT IN PLACE RESTING WITH EYES CLOSED IV WITH NS KVO AND ZOFRAN AT 4.7
--- NOTE | 2018-03-31 04:22 | NUR ---
RESTING QUITELY IN BED RESP UNLABORED NO APPARENT DISTRESS CALL LIGHT IN REACH
--- NOTE | 2018-03-31 05:36 | NUR ---
SHOWER COMPLETE AND SCDs LEFT OFF FOR NOW. TALKED WITH PT AGAIN ABOUT SIGNING CONSENTS AND HE WAS AGAIN SAYING YES BUT ASKING QUESTIONS. "I DONT KNOW...I'LL SIGN ANY DAMN THING YOU WANT" I WILL HOLD SIGNING FOR NOW.
[2018-03-31 06:21] LABS: BASOPHILS 0.5 % (0-2); EOSINOPHILS 0.5 % (0-7); HEMATOCRIT 27.7 % (42.0-54.0); HEMOGLOBIN 9.1 g/dL (13.5-17.5); IMMATURE GRANULOCYTES 0.5 % (0-5); LYMPHOCYTES 17.7 % (15-50); MCH 28.9 pg (26.0-34.0); MCHC 32.9 g/dL (31.0-37.0); MCV 87.9 fL (80.0-100.0); MEAN PLATELET VOLUME 10.6 fL (7.4-10.4); MONOCYTES 9.4 % (2-11); NEUTROPHILS 71.4 % (40-80); PLATELET COUNT 349 10x3/uL (130-400); RBC 3.15 10x6/uL (4.20-6.10); RDW 17.4 % (11.5-14.5); WBC 8.8 10x3/uL (4.8-10.8)
[2018-03-31 06:42] LABS: ALBUMIN 1.5 g/dL (3.4-5.0); ALKALINE PHOSPHATASE 105 U/L (46-116); ALT (SGPT) 16 U/L (10-68); BILIRUBIN - TOTAL 0.34 mg/dL (0.2-1.3); CALC OSMOLALITY 268 mosm/kg (275-300); CALCIUM 7.7 mg/dL (8.5-10.1); CARBON DIOXIDE 24.7 mmol/L (21.0-32.0); CHLORIDE - SERUM 101 mmol/L (98-107); CREATININE - SERUM 0.8 mg/dL (0.6-1.3); GLUCOSE 104 mg/dL (74-106); POTASSIUM - SERUM 4.2 mmol/L (3.5-5.1); PROTEIN - SERUM 8.4 g/dL (6.4-8.2); SODIUM 134 mmol/L (136-145); UREA NITROGEN 15 mg/dL (7-18); eGFR NON AFRICAN AMERICAN > 90 mL/min (90-120)
--- NOTE | 2018-03-31 07:53 | NUR ---
PT ALERT X 4. BREATH SOUNDS CLEAR BILAT. TELEMETRY IN PLACE. IV TO LEFT WRIST, PATENT, DRESSING CLEAN DRY AND INTACT. ABDOMEN DISTENDED AND TENDER. CONSENTS SIGNED, ALL QUESTIONS ANSWERED. FAMILY AT BEDSIDE. BED LOW, CALL LIGHT IN REACH. NO OTHER NEEDS AT THIS TIME.
--- NOTE | 2018-04-01 05:39 | NUR ---
PATIENT HAS REFUSED V/S ALL SHIFT. REFUSED AM LABS
--- NOTE | 2018-04-01 06:27 | NUR ---
A&O ABLE TO VOICE NEEDS AND WANTS TO STAFF. MOTHER AT BEDSIDE. IV INTACT TO L WRIST. CALL LIGHT IN REACH NO NEEDS AT THIS TIME.
[2018-04-01 08:51] VITALS: BP 114/83
--- NOTE | 2018-04-01 09:45 | NUR ---
PATIENT IN BED, SKIN W/D TO TOUCH, COLOR PINK, RESP. REGULAR AND EVEN AT 20. MOTHER AT BEDSIDE. IV NS INFUSING AT 10 VIA LEFT HAND, NO REDNESS OR SWELLING NOTED. DR. COHEN ROUNDED AND RECEIVED N.O. FOR REMOVAL OF CABALLERO. PATIENT REQUESTED PAIN PILL AND ZOFRAN AND GIVEN AT 08:05 HE DIDN'T WANT ,E TO REMOVE CABALLERO YET, STATED WOULD LET ME KNOW WHEN HE IS READY TO HAVE CABALLERO REMOVED. TOOK MEDS WITHOUT DIFFICULTY. PATIENT VERY ANXIOUS MOTHER AT BEDSIDE. C/L WITHIN REACH AND SR'S UP X'S 2. REMOVED OLD NICODERM PATCH FROM LEFT UPPER SHOULDER AND PLACED IN SHARPS, NEW PATCH APPLIED TO RIGHT UPPER ARM. CONTINUE TO MONITOR.
--- NOTE | 2018-04-01 10:30 | NUR ---
PATIENT STATED READY TO GET CABALLERO OUT, 6 MLS OF WATER REMOVED AND CABALLERO REMOVED WITHOUT ANY DIFFICULTY WITH 700 MLS IN BAG. PATIENT REMAINS VERY ANXIOUS. C/L WITHIN REACH AND SR;S UP X;S 2 REFUSED SCD'S.
[2018-04-01] MEDS ORDERED: Nicoderm [PBKC] TRANSDERM (10:38)
[2018-04-01] MEDS ORDERED: FLAGYL500 MG PO (10:38)
[2018-04-01] MEDS ORDERED: ACETAMINOPHEN325 MG PO ×2 (10:39)
[2018-04-01 10:40] LABS: BASOPHILS 0.1 % (0-2); EOSINOPHILS 0.1 % (0-7); HEMATOCRIT 26.8 % (42.0-54.0); HEMOGLOBIN 8.6 g/dL (13.5-17.5); IMMATURE GRANULOCYTES 0.3 % (0-5); LYMPHOCYTES 12.7 % (15-50); MCH 28.4 pg (26.0-34.0); MCHC 32.1 g/dL (31.0-37.0); MCV 88.4 fL (80.0-100.0); MEAN PLATELET VOLUME 10.1 fL (7.4-10.4); MONOCYTES 10.1 % (2-11); NEUTROPHILS 76.7 % (40-80); PLATELET COUNT 352 10x3/uL (130-400); RBC 3.03 10x6/uL (4.20-6.10)
[2018-04-01] MEDS ORDERED: ATIVAN IV (10:40)
[2018-04-01] MEDS ORDERED: NORCO-7.5 PO (10:40)
[2018-04-01] MEDS ORDERED: ONDANSETRON4 MG/2 M3 IV (10:41)
[2018-04-01] MEDS ORDERED: PROTONIX VL + NS SYR IV (10:41)
[2018-04-01] MEDS ORDERED: ELIQUIS5 MG PO ×2 (10:48→10:49)
[2018-04-01] MEDS ORDERED: KEFLEX500 MG PO (10:53)
[2018-04-01 10:59] LABS: ALBUMIN 1.5 g/dL (3.4-5.0); ALKALINE PHOSPHATASE 89 U/L (46-116); ALT (SGPT) 17 U/L (10-68); BILIRUBIN - TOTAL 0.25 mg/dL (0.2-1.3); CALC OSMOLALITY 272 mosm/kg (275-300); CALCIUM 7.8 mg/dL (8.5-10.1); CARBON DIOXIDE 24.2 mmol/L (21.0-32.0); CHLORIDE - SERUM 102 mmol/L (98-107); GLUCOSE 115 mg/dL (74-106); POTASSIUM - SERUM 4.3 mmol/L (3.5-5.1); PROTEIN - SERUM 8.2 g/dL (6.4-8.2); SODIUM 135 mmol/L (136-145); UREA NITROGEN 18 mg/dL (7-18); eGFR NON AFRICAN AMERICAN 87 mL/min (90-120)
--- NOTE | 2018-04-01 12:33 | MORECARE ---
CASE MANAGEMENT DISCHARGE SUMMARY PATIENT: KRISTINE PRO UNIT: [id number] ADM DATE: 03/13/18 AGE: 42 : 75 SEX: M ROOM/BED: D.2236 AUTHOR: ALFREDO HORTON PHYSICIAN: REFERRING PHYSICIAN: CRISTIN RICKETTS MD DATE OF SERVICE: 04/01/18 Discharge Plan Patient Name: KRISTINE PRO Facility: [facility]:[place] : 1975 Planned Disposition: Home Anticipated Discharge Date: Discharge Date: Expected LOS: Initial Reviewer: [email or web address] Initial Review Date: 02/18/2018 Generated: 04/01/18 1:33 pm Comments DCP- Discharge Planning Updated by [email or web address]: Dunia Tavarez on 04/01/18 11:[address] Received order for discharge. He is discharging to inpatient rehab today. He and his mother are in the room and agree with discharge plan. Natali is aware of discharge order and is accepting today. CM will continue to follow and assist with discharge planning/needs. DCP- Discharge Planning Updated by [id number]: Dunia Tavarez on 03/29/18 11:[address] Spoke with patient's mother per her request. She is requesting her son go to inpatient rehab here if possible. I explained that he would need a qualifying diagnosis for inpatient rehab. I discussed the availability of home health as well when discharged. She states her son is very independent and she thinks with rehab, he can go home without home health, but it will be a consideration. States he may go live with her sister post discharge. CM will continue to follow and assist with discharge planning/needs. DCP- Discharge Planning Updated by [id number]: Raven Hanson on 03/21/18 6:[address] LATE ENTRY 03/21/18 @ 1230 Patient Name: KRISTINE PRO Admission Status: ER Accout number: [id number] Admission Date: 03-13-2018 : 1975 Admission Diagnosis:HYPERTENSIVE CHRONIC KIDNEY DISEASE W STG 1-4/UNSP [facility] Attending: CRISTIN RICKETTS Current LOS: 8 Anticipated DC Date: Planned Disposition: Home Primary Insurance: MEDICARE A & B Discharge Planning Comments: CM met with patient at bedside after obtaining verbal consent. Patient states he plans on returning home alone after discharge if possible. Patient states he will have family transport him home via private vehicle. Patient denies any discharge needs at this time. CM will continue to follow and assist as needed for discharge planning / needs. Head Operator Sulfide: Raven Hanson DCPIA - Discharge Planning Initial Assessment Updated by [email or web address]: Raven Hanson on 03/21/18 7:02 pm * Is the patient Alert and Oriented? Yes * How many steps to enter\exit or inside your home? * PCP unknown * Pharmacy [facility] * Preadmission Environment Home Alone * ADLs Independent * Equipment None * List name and contact numbers for known caregivers / representatives who currently or will assist patient after discharge: PASCUAL JACBOO - MOTHER- [phone] TAYLOR - SISTER- [phone] * Verbal permission to speak to the caregivers and representatives has been obtained from the patient. N/A * Community resources currently utilized None * Additional services required to return to the preadmission environment? No * Can the patient safely return to the preadmission environment? Yes * Has this patient been hospitalized within the prior 30 days at any hospital? No Coverage Notice Reviewer: [email or web address] Gerald Tavarez Notice Issued Date-Time: 04/01/2018 12:25 Notice Type: IM Discharge Notice Notice Delivered To: Patient Relationship to Patient: Self Network Developer Name: Delivery Method: HAND - Hand Delivered Merle Days: Prior Verbal Notification: Recipient Understood Notice: Yes Recipient Signature: Yes Med Rec Note Co-signed by Attending: Coverage Notice Comment: IMM explained, signed, copy given, original placed in MR Last DP export: 03/29/18 11:11 a Patient Name: KRISTINE PRO Page [id number] at 1233 All edits/amendments must be made on the electronic document DICTATION DATE: 04/01/18 1233 CORPORATE RELATIONS MANAGER: JODY 04/01/18 1233 RPT#: [id number] DC DATE: STATUS: ADM IN [facility] [address] [place] [address] END OF REPORT
--- NOTE | 2018-04-01 14:05 | OP ---
PATIENT NAME: KRISTINE PRO MEDICAL RECORD: [id number] :75 LOCATION:[id number] ADMISSION DATE:03/13/18 SURGEON: HEATHER COHEN MD DATE OF OPERATION: 03/31/2018 PREOPERATIVE DIAGNOSES: 1. Acute cholecystitis. 2. Hepatic abscess. 3. History of amphetamine abuse. POSTOPERATIVE DIAGNOSES: 1. Acute cholecystitis. 2. Hepatic abscess. 3. History of amphetamine abuse. PROCEDURE: Laparoscopic cholecystectomy. SURGEON: Heather Cohen MD REPORT OF PROCEDURE: The patient's abdomen was prepped and draped in sterile fashion. A cutdown was made on the superior aspect of the umbilicus. #0 Vicryls were placed on the fascia bilaterally and the fascia was incised with #15 blade. I then bluntly entered the peritoneal cavity and placed a 12-mm Aden port. Under direct visualization, a 5-mm trocar was placed in the epigastrium and two more 5-mm trocars were placed in right subcostal region. Upon coming to the gallbladder fossa, there was noted to be a dense amount of adhesion present, mainly of the omental fat, but also including the first and second portions of the duodenum. A careful dissection was performed of this tissue off of the base of the gallbladder. When we initially pulled this tissue off of the gallbladder, it was noted that the fundus of the gallbladder had a large hole in it that appeared chronic in nature, and at this point, 8 stones came out of the gallbladder. The gallbladder was very contracted and swollen. The liver itself around the area was very swollen. We began our dissection down through this inflammatory tissue with care taken to try to not injure the duodenum. At the conclusion of freeing this up, there was no evidence of any enteral contents or succuss present and there was no sign of any full-thickness injury to the duodenum. We were able to dissect out some tubular structures. I continued my dissection down, was eventually able to find the common bile duct. This was protected. As I came up, I was able to find a very small tubular structure extending from this to the gallbladder, most consistent with the cystic duct. This was clipped proximally and distally and ligated in a standard fashion. There was a cystic artery that was easily visualized and this was clipped proximally and distally and ligated. It was noted to have some pulsatile movements. As we continued our dissection up, there was a very thick piece of tissue at the gallbladder base, did not appear to be tubular, but I went ahead and just clipped it proximally and distally, and transected it. At the conclusion of this, I did not see any evidence of a tubular structure within this material. The gallbladder at this point was completely freed up from the liver bed. The liver bed was treated with electrocautery to stop any bleeding. We then irrigated out the right upper quadrant and assured there was no sign of any bleeding and there was no evidence of a bile leak. At this point, the gallbladder was placed into an EndoCatch bag along with the 8 stones. The gallbladder bed was inspected one last time again and there was no sign of any bile leak or bleeding. At this point, the ports and insufflation were then removed and the gallbladder was taken out through the umbilicus. The umbilical OPERATIVE REPORT [id number] KRISTINE PRO S fascia was closed with interrupted #0 Vicryls times 3. The wounds were then irrigated out with normal saline and infused with 10 mL of 0.25% Marcaine with epinephrine. The skin incisions were all closed with subcutaneous 5-0 Monocryl and dressed appropriately. COMPLICATIONS: None. CONDITION: Stable. ANESTHESIA: General endotracheal and local. BLOOD LOSS: 100 mL. TRANSINT:[id number] Voice Confirmation ID: [id number] DOCUMENT ID: [id number] HEATHER COHEN MD at 1405 CC: [id number] DICTATION DATE: 03/31/18 1419 OUTSOLE CASER: 03/31/18 1827 ADM IN [place] [id number] [place] [address]
--- NOTE | 2018-04-01 15:20 | NUR ---
PATIENT'S MOM ASKED FOR APPLE JUICE AND GIVEN. PATIENT STATING I NEED ANOTHER PAIN PILL NOW INFORMED TOO EARLY. PATIENT STATED " HAD MODERATE BM" URINATED SMALL AMOUNT, REASKED PATIENT TO SAVE URINE IF HE VOIDS SO I CAN SEE HOW MUCH HE IS VOIDING.
--- NOTE | 2018-04-01 18:01 | NUR ---
REPORT CALLED TO MARGARETTE MARVIN ON REHAB, SKIN W/D TO TOUCH, COLOR PINK, RESP. REGULAR AND EVEN AT 20. PATIENT TRANSFERRED VIA BED, MOM AT BEDSIDE, ALL BELONGINGS SENT WITH PATIENT.
--- NOTE | 2018-04-01 18:40 | NUR ---
DIDN'T RECEIVE BED TIL AFTER 6 PM REPORT CALLED TO MARGARETTE MARVIN C/L WITHIN REACH X'S 2
--- NOTE | 2018-04-01 18:43 | NUR ---
PT HERE FOR DEHYDRATION AND RENAL FAILURE FOR THIS VISIT WILL CONTINUE TO MONITOR
--- NOTE | 2018-04-04 16:54 | MORECARE ---
CASE MANAGEMENT DISCHARGE SUMMARY PATIENT: KRISTINE PRO UNIT: [id number] ADM DATE: 03/13/18 AGE: 42 : 75 SEX: M ROOM/BED: D.2236 AUTHOR: ALFREDO HORTON PHYSICIAN: REFERRING PHYSICIAN: CRISTIN RICKETTS MD DATE OF SERVICE: 04/04/18 Discharge Plan Patient Name: KRISTINE PRO Facility: [facility]:[place] : 1975 Planned Disposition: Home Anticipated Discharge Date: Discharge Date: 04/01/2018 Expected LOS: 0 Initial Reviewer: [email or web address] Initial Review Date: 02/18/2018 Generated: 04/04/18 5:54 pm Comments DCP- Discharge Planning Updated by [email or web address]: Dunia Tavarez on 04/01/18 11:[address] Received order for discharge. He is discharging to inpatient rehab today. He and his mother are in the room and agree with discharge plan. Natali is aware of discharge order and is accepting today. CM will continue to follow and assist with discharge planning/needs. DCP- Discharge Planning Updated by [email or web address]: Dunia Tavarez on 03/29/18 11:[address] Spoke with patient's mother per her request. She is requesting her son go to inpatient rehab here if possible. I explained that he would need a qualifying diagnosis for inpatient rehab. I discussed the availability of home health as well when discharged. She states her son is very independent and she thinks with rehab, he can go home without home health, but it will be a consideration. States he may go live with her sister post discharge. CM will continue to follow and assist with discharge planning/needs. DCP- Discharge Planning Updated by [email or web address]: Raven Hanson on 03/21/18 6:[address] LATE ENTRY 03/21/18 @ 1230 Patient Name: KRISTINE PRO Admission Status: ER Accout number: [id number] Admission Date: 03-13-2018 : 1975 Admission Diagnosis:HYPERTENSIVE CHRONIC KIDNEY DISEASE W STG 1-4/UNSP CHR Attending: CRISTIN RICKETTS Current LOS: 8 Anticipated DC Date: Planned Disposition: Home Primary Insurance: MEDICARE A & B Discharge Planning Comments: CM met with patient at bedside after obtaining verbal consent. Patient states he plans on returning home alone after discharge if possible. Patient states he will have family transport him home via private vehicle. Patient denies any discharge needs at this time. CM will continue to follow and assist as needed for discharge planning / needs. Access Representative: Raven Rodriguezr DCPIA - Discharge Planning Initial Assessment Updated by [email or web address]: Raven Hanson on 03/21/18 7:02 pm * Is the patient Alert and Oriented? Yes * How many steps to enter\exit or inside your home? * PCP unknown * Pharmacy [facility] [place] * Preadmission Environment Home Alone * ADLs Independent * Equipment None * List name and contact numbers for known caregivers / representatives who currently or will assist patient after discharge: PASCUAL JACOBO - MOTHER- [phone] TAYLOR - SISTER- [phone] * Verbal permission to speak to the caregivers and representatives has been obtained from the patient. N/A * Community resources currently utilized None * Additional services required to return to the preadmission environment? No * Can the patient safely return to the preadmission environment? Yes * Has this patient been hospitalized within the prior 30 days at any hospital? No Coverage Notice Reviewer: [email or web address] Gerald Tavarez Notice Issued Date-Time: 04/01/2018 12:25 Notice Type: IM Discharge Notice Notice Delivered To: Patient Relationship to Patient: Self Broiler Chef Or Cook Name: Delivery Method: HAND - Hand Delivered Merle Days: Prior Verbal Notification: Recipient Understood Notice: Yes Recipient Signature: Yes Med Rec Note Co-signed by Attending: Coverage Notice Comment: IMM explained, signed, copy given, original placed in MR Last DP export: 04/01/18 11:33 a Patient Name: KRISTINE PRO Page [id number] at 1654 All edits/amendments must be made on the electronic document DICTATION DATE: 04/04/181653 EXTRUDER OPERATOR MULTIPLE: JODY 04/04/181653 RPT#: [id number] DC DATE:04/01/18 STATUS: DIS IN [facility] [address] [place] [address] END OF REPORT
== END 2018-04-01 19:51 | DRG 853 ==
LOC: D.ER 15:03 → D.M2 18:30 → D.MS 18:30 → D.EDHOLD 18:30 → D.M2 19:10 → D.ICU 03-14 19:25 → D.M2 03-16 11:04 → D.ICU 03-17 16:34 → D.MS 03-22 16:57
PROVIDERS: Emergency Medicine; Family Medicine; General Practice; Internal Medicine; Internal Medicine Nephrology; Surgery; ADMIT Emergency Medicine
PROC: 0FB13ZX Excision of Right Lobe Liver, Percutaneous Approach, Diagnostic (ICD-10-PCS; 2018-03-15)
PROC: 0F9130Z Drainage of Right Lobe Liver with Drainage Device, Percutaneous Approach (ICD-10-PCS; 2018-03-15)
PROC: 0W9F30Z Drainage of Abdominal Wall with Drainage Device, Percutaneous Approach (ICD-10-PCS; 2018-03-28)
PROC: 0FT44ZZ Resection of Gallbladder, Percutaneous Endoscopic Approach (ICD-10-PCS; principal; 2018-03-31 12:00)
DX: A41.9 Sepsis, unspecified organism (principal); K75.0 Abscess of liver; N17.9 Acute kidney failure, unspecified; E46 Unspecified protein-calorie malnutrition; E87.0 Hyperosmolality and hypernatremia; N39.0 Urinary tract infection, site not specified; E87.2 Acidosis; K81.0 Acute cholecystitis; I12.9 Hypertensive chronic kidney disease with stage 1 through stage 4 chronic kidney disease, or unspecified chronic kidney disease; R65.20 Severe sepsis without septic shock; N18.9 Chronic kidney disease, unspecified; E86.0 Dehydration; R74.0 Nonspecific elevation of levels of transaminase and lactic acid dehydrogenase [LDH]; G89.29 Other chronic pain; E88.09 Other disorders of plasma-protein metabolism, not elsewhere classified; F15.10 Other stimulant abuse, uncomplicated; Z86.19 Personal history of other infectious and parasitic diseases; G72.9 Myopathy, unspecified

== ENCOUNTER 2018-04-01 17:32 | Inpatient (IN) | payer MEDICARE ==
[~2018-04-01] VITALS: Ht 180.3 cm; Wt 95.3 kg
[~2018-04-01 17:32] MED LIST: ACETAMINOPHEN325 MG PO; ALEVE220 MG PO; ASPIRIN325 MG PO; ATIVAN IV; ELIQUIS5 MG PO; FLAGYL500 MG PO; KEFLEX500 MG PO; NORCO-7.5 PO; Nicoderm [PBKC] TRANSDERM; ONDANSETRON4 MG/2 M3 IV; PROTONIX VL + NS SYR IV
--- NOTE | 2018-04-01 19:45 | NUR ---
PT ARRIVED TO UNIT VIA BED PROPELLED BY STAFF. PT WAS PARKED IN THE HALLWAY, AND PT GOT UP AND AMBULATED INTO ROOM INDEPENDENTLY. PT IS ALERT AND ORIENTED X 3. VOICED COMPLAINT OF BACK PAIN LEVEL OF 8, AND REQUESTS A PAIN PILL FIDEL. PT IS HEP C POSITIVE. HE STATES HE IS HERE FOR WEAKNESS FROM SURGERY, AND THAT HE IS DISABLED DUE TO BACK INJURIES AND CANNOT DO EVERYTHING FOR HIMSELF. BANDAIDS NOTED TO ABDOMINAL INCISIONS. NO DRAINAGE NOTED. SR'S ARE UP X 2 IN BED. CALL LIGHT AND BEDSIDE TABLE ARE WITHIN EASY REACH.
[2018-04-01 20:15] VITALS: BP 143/81
--- NOTE | 2018-04-01 20:15 | NUR ---
PTS MOTHER ARRIVED ON UNIT. SHE STATES SHE LIVES 4 HRS AWAY, AND WILL STAY THE NIGHT AND LEAVE FOR HOME IN THE MORNING.
--- NOTE | 2018-04-01 21:29 | NUR ---
LIGHTS OUT FOR THE NIGHT PER HIS REQUEST.
[2018-04-01 22:16] VITALS: BP 143/81; BMI 29.3
--- NOTE | 2018-04-01 23:15 | NUR ---
SALINE LOCK FROM LEFT WRIST DC'D WITH CATH INTACT SIMON BROOKS RN. BANDAID APPLIED TO SITE.
--- NOTE | 2018-04-01 23:51 | NUR ---
PT ASSESSMENT COMPLETED EARLIER THIS SHIFT, MOTHER AT BEDSIDE, BUTTOCKS RED/RAW, SCROTUM RED/RAW, DRAIN TUBE REMOVED FROM RT OUTER CHEST WALL DRSG C/D/I, INCISIONS X 4 ABDOMEN FROM GALLBLADDER SURGERY DRSG C/D/I, IV TO BACK OF LFT HAND PATENT, FLUIDS AND CALL LIGHT WITHIN REACH
--- NOTE | 2018-04-02 02:35 | NUR ---
RESTING QUIETLY IN BED WITH EYES CLOSED. NO ACUTE DISTRESS NOTED.
[2018-04-02 06:35] LABS: BASOPHILS 0.5 % (0-2); EOSINOPHILS 0.6 % (0-7); HEMATOCRIT 28.5 % (42.0-54.0); HEMOGLOBIN 9.1 g/dL (13.5-17.5); IMMATURE GRANULOCYTES 0.6 % (0-5); LYMPHOCYTES 17.7 % (15-50); MCH 28.1 pg (26.0-34.0); MCHC 31.9 g/dL (31.0-37.0); MONOCYTES 9.5 % (2-11); NEUTROPHILS 71.1 % (40-80); PLATELET COUNT 358 10x3/uL (130-400); RBC 3.24 10x6/uL (4.20-6.10); WBC 8.9 10x3/uL (4.8-10.8)
[2018-04-02 06:56] LABS: CALC OSMOLALITY 264 mosm/kg (275-300); CALCIUM 7.9 mg/dL (8.5-10.1); CARBON DIOXIDE 25.1 mmol/L (21.0-32.0); CHLORIDE - SERUM 100 mmol/L (98-107); CREATININE - SERUM 0.9 mg/dL (0.6-1.3); GLUCOSE 89 mg/dL (74-106); POTASSIUM - SERUM 4.5 mmol/L (3.5-5.1); SODIUM 132 mmol/L (136-145); UREA NITROGEN 16 mg/dL (7-18); eGFR NON AFRICAN AMERICAN > 90 mL/min (90-120)
--- NOTE | 2018-04-02 06:57 | NUR ---
RESTING QUIETLY IN BED. NO S/S DISTRESS OR NEEDS. CALL LIGHT IN REACH. BED IN LOWEST POSITION.
[2018-04-02 07:30] VITALS: BP 109/80
--- NOTE | 2018-04-02 10:57 | NUR ---
ASKING FOR PAIN MEDS BEFORE IT IS TIME. C/O ABD PAIN. WALKS IN ROOM TO BATHROOM AND BACK TO BED. CALL LIGHT IN REACH
[2018-04-02 13:27] VITALS: Ht 180.3 cm; Wt 95.3 kg
--- NOTE | 2018-04-02 18:03 | NUR ---
RESTING QUIETLY IN BED. ATE ALL OF SUPPER. CALL LIGHT IN REACH
--- NOTE | 2018-04-02 21:24 | NUR ---
PT IS RESTING IN BED WITH EYES OPEN. ALERT AND ORIENTED X 4. PT VOICES COMPLAINT OF BACK PAIN LEVEL OF 3 AT THIS TIME. HE STATES THE PAIN MEDS HELP, BUT RARELY COMPLETELY RELIEVE THE PAIN. INCISIONS TO ABD ARE CDI. NO DRAINAGE NOTED. SR'S ARE UP X 2 IN BED. CALL LIGHT AND BEDSIDE TABLE ARE WITHIN EASY REACH.
[2018-04-02 23:05] VITALS: BP 143/71
--- NOTE | 2018-04-02 23:54 | NUR ---
PT ASLEEP NO NEEDS NOTED FLUIDS AND CALL LIGJT WITHIN REACH
--- NOTE | 2018-04-03 05:27 | NUR ---
RESTING IN BED WITH EYES CLOSED. NO DISTRESS NOTED.
--- NOTE | 2018-04-03 09:41 | NUR ---
RESTING QUIETLY IN BED. ATE ALL BREAKFAST. C/O PAIN WHEN UP. NO S/S INFECTION TO ABD INCISIONS. CALL LIGHT IN REACH
[2018-04-03 10:42] VITALS: BP 127/72
[2018-04-03 19:11] VITALS: BP 125/74
--- NOTE | 2018-04-03 19:40 | NUR ---
PT ASLEEP ON RT SIDE NO NEEDS NOTED FLUIDS AND CALL LIGHT WITHIN REACH
--- NOTE | 2018-04-03 21:25 | NUR ---
PT RESTING IN BED WATCHING TV. NO NEEDS VOICED.
--- NOTE | 2018-04-04 00:01 | NUR ---
PT UP IN WC VISITING US AT THE NURSES STATION. NO DISTRESS NOTED.
--- NOTE | 2018-04-04 03:19 | NUR ---
PT RESTING IN BED WITH EYES CLOSED.
[2018-04-04 06:41] LABS: BASOPHILS 0.5 % (0-2); EOSINOPHILS 1.3 % (0-7); HEMATOCRIT 29.8 % (42.0-54.0); HEMOGLOBIN 9.5 g/dL (13.5-17.5); IMMATURE GRANULOCYTES 0.5 % (0-5); LYMPHOCYTES 18.6 % (15-50); MCH 28.5 pg (26.0-34.0); MCHC 31.9 g/dL (31.0-37.0); MCV 89.5 fL (80.0-100.0); MEAN PLATELET VOLUME 9.8 fL (7.4-10.4); MONOCYTES 10.3 % (2-11); NEUTROPHILS 68.8 % (40-80); PLATELET COUNT 364 10x3/uL (130-400); RBC 3.33 10x6/uL (4.20-6.10); RDW 16.8 % (11.5-14.5); WBC 7.5 10x3/uL (4.8-10.8)
[2018-04-04 07:00] LABS: CALC OSMOLALITY 271 mosm/kg (275-300); CARBON DIOXIDE 25.7 mmol/L (21.0-32.0); CHLORIDE - SERUM 99 mmol/L (98-107); CREATININE - SERUM 0.8 mg/dL (0.6-1.3); GLUCOSE 132 mg/dL (74-106); SODIUM 134 mmol/L (136-145); UREA NITROGEN 18 mg/dL (7-18); eGFR NON AFRICAN AMERICAN > 90 mL/min (90-120)
[2018-04-04 08:27] VITALS: BP 144/92
--- NOTE | 2018-04-04 10:12 | NUR ---
PATIENT SLEEPING THIS MORNING AND HAD TO BE AWAKEN FOR BREAKFAST. ALERT AND ORIENTED. ATE 100% OF BREAKFAST. STATES THAT HE IS GOING HOME TODAY. HE HAS PEOPLE ON THEIR WAY TO PICK HIM UP. DR. RICKETTS STATES THAT HE WILL NOT DISCHARGE HIM AND HE WILL HAVE TO GO AMA. HE WAS INFORMED OF THIS AND THAT HE WOULD NOT GET ANY PRESCIPTIONS. HE STATED THAT HE STILL WANTS TO GO. NOTIFIED COMPATIBILITY TEST ENGINEER OF THIS.
--- NOTE | 2018-04-04 10:51 | NUR ---
CALLED DR. COHEN'S OFFICE REGARDING PATIENT LEAVING AMA AND IF HE WANTS HIM TO CONTINUE ON ANTIBIOTICS AFATER DISCHARGE. AWAITING FOR RETURN CALL. SPOKE WITH PATIENT'S MOM ABOUT PATIENT LEAVING AND MOM WAS AWARE THAT THIS MIGHT HAPPEN.
--- NOTE | 2018-04-04 11:15 | NUR ---
DR. COHEN RETURNED PHONED AND STATED THAT HE WAS ON ANTIBIOTIC FOR LIVER ABCESS AND SHOULD CONTINUE FOR THAT BUT IT WAS NOT NEEDED POST SURGICAL.
--- NOTE | 2018-04-04 11:20 | NUR ---
ENTRY LEVEL ADMINISTRATIVE ASSISTANT NOTIFIED THAT PATIENT WILL BE LEAVING AMA.
--- NOTE | 2018-04-04 11:30 | NUR ---
PATIENT SIGNED AMA FORM. UNDERSTANDS THAT DR. RICKETTS DOES NOT FEEL THAT HE IS READY TO GO HOME. DISCHARGE PAPERS AND PATIENT EDUCATION PAPERS GIVEN TO PATIENT.
--- NOTE | 2018-04-04 11:45 | NUR ---
ANTIBIOTICS CALLED IN TO [facility].
--- NOTE | 2018-04-04 12:15 | NUR ---
PATIENT STILL PLANNING ON LEAVING AMA. DOES NOT WANT TO EAT LUNCH. RESTING IN BED AT THIS TIME WAITING FOR RIDE TO COME AND PICK HIM UP. NO COMPLAINTS.
--- NOTE | 2018-04-04 14:10 | NUR ---
PATIENT LEFT FACILITY AMA WITH FAMILY.
--- NOTE | 2018-04-14 08:32 | RHP ---
PATIENT: KRISTINE PRO MEDICAL RECORD: [id number] ACCOUNT: [id number] LOCATION[id number] : [birth year] ADMISSION DATE: 04/01/18 REHABILITATION HISTORY AND PHYSICAL EXAMINATION POST ADMISSION PHYSICIAN EXAMINATION DATE OF ADMISSION: 04/01/2018 ADMITTING DIAGNOSIS: Disuse myopathy. HISTORY OF PRESENT ILLNESS: The patient is a 42-year-old gentleman admitted secondary to severe sepsis, acute renal failure and major medical complications. He has got history of hepatitis C, chronic kidney disease, gastritis, presented to the Emergency Room at [facility] [facility] with nausea, vomiting, diarrhea began the day after [place]. He reports that he had smoked some meth the night prior to this, began having nausea, vomiting, diarrhea, chest pain, shortness of breath. The patient was found to have an elevated BNP. LFTs were elevated. Renal function, cardiac enzymes are also out. The patient was transferred to [place] for higher level of evaluation. CT demonstrated multifocal lesions in the liver. The patient apparently admitted to recent IV drug use and high suspicion for liver abscesses. Interventional radiology was consulted, they did aspirate plus and left to drain them. He had temperature spike of 103.3, leukocytosis, lethargy, hypoxia, elevated LFTs, ammonia and thrombocytopenia related to Staphylococcus sepsis on 03/17/2018. Rapid response was called. He was transferred to the ICU. Nephrology and ID saw him there. His leukocytosis continued to improve. He did have vitamin K coagulopathy. Echo showed no vegetations. His renal failure has been improving. On 03/22/2018, he was transferred out of ICU. On 03/30/2018, it was determined that the hepatic abscesses had resolved. He had a normal PIPIDA scan done. Surgery was consulted during his stay, though because he did have appeared to have some acute cholecystitis with occlusion of the cystic duct, had a laparoscopic cholecystectomy done on 03/31/2018. Postop, he has been alert and oriented. He has been receiving IV Rocephin, p.o. Flagyl. Previously he lived alone, was independent with ADLs and mobility. Currently, he is mod-to-max assist for ADLs and mobility, he had prolonged immobility, progressive generalized weakness, especially in his lower extremities, affecting his tolerance to PT, he has been very fatigued. He has had limited flexion and extension of his lower extremities. He is mod-to-max assist for ADLs, mod-to-max assist for [id number] and [id number]. He is highly motivated and has good family support to get back to his prior level of function and hopefully be able to ambulate without any type of device. COMORBIDITIES: Include lactic acidosis, anxiety, hep C, amphetamine abuse, hepatic abscess, leukocytosis, anemia, hyponatremia, cholecystitis, severe sepsis, right pleural effusion, IV drug use, metabolic acidosis, chronic pain, transaminitis, coagulopathy, disuse myopathy, portal vein thrombosis, gallstones and acute cholecystitis. PAST MEDICAL HISTORY: Significant for hepatitis, renal failure, kidney problems, gastritis, chronic back pain. PAST SURGICAL HISTORY: None. ALLERGIES: PENICILLIN G. HISTORY AND PHYSICAL [id number] KRISTINE PRO CURRENT MEDICATIONS: Include Eliquis, he is on 5 mg b.i.d.; Protonix 40 mg daily; he is on a Nicoderm patch; he is on Zofran 4 mg daily; he is on Shelbiana 7.5/325 one tab every 4 hours p.r.n.; Flagyl 500 mg t.i.d.; Keflex 500 mg t.i.d.; lorazepam 1 mg every 6 hours p.r.n.; Tylenol 650 every 4 hours p.r.n.; and MiraLax 17 grams in 8 ounces of water daily. HABITS: Does have a history of illicit drug use, alcohol and tobacco use. FAMILY HISTORY: Noncontributory. SOCIAL HISTORY: The patient hopes to return back home and get back to his prior level of functioning. REVIEW OF SYSTEMS: GENERAL: Does complain of some weakness and fatigue. HEENT: Denies cold, cough, or congestion. CARDIOVASCULAR: He denies chest pain. PHYSICAL EXAMINATION: VITAL SIGNS: Stable, afebrile. GENERAL: A well-developed gentleman in no acute distress, alert upon exam. HEENT: Normocephalic and atraumatic. Mucosa moist. NECK: Supple. No lymphadenopathy. LUNGS: Clear at this time with no wheezing, rhonchi or rales. HEART: Regular rate and rhythm. No murmurs, rubs or gallops. ABDOMEN: Soft. EXTREMITIES: He does have postop puncture wounds noted from his cholecystectomy, but these appear normal. EXTREMITIES: No clubbing, cyanosis or edema. NEUROLOGIC: He is mainly intact, although he does have weakness. LABORATORY DATA: White count is 8.9, H&H of 9.1 and 28.5 and platelet count was 358. Sodium 132, potassium 4.5, BUN and creatinine of 16 and 0.9 and blood sugar is noted to be 89. ASSESSMENT: This is a 42-year-old gentleman admitted to the rehab with a working diagnosis of disuse myopathy. The patient has potential to make improvement. We instituted the following multidisciplinary therapies to include, not limited to physical, occupational, respiratory, speech, nutritional services, prosthetics and orthotics. Given his complex medical condition and risks for more complications, rehabilitation services cannot be provided at a low level of care such as snf facility. PLAN: 1. Admit to [facility] rehab for intensive inpatient therapy to include the following disciplines: A. Physical therapy to improve gait, all transfer skills and bed mobility to a modified independent level. B. Occupational therapy to a modified independent level. C. Case management to assist with discharge planning and placement options. D. Nutrition to assist with nutritional needs. E. Rehabilitation nursing to assist in monitoring the patient's underlying medical condition and to assist with any type of bowel or bladder management. 2. The patient's current medication and medical care will be continued. 3. The patient will be placed on standard fall precautions. HISTORY AND PHYSICAL [id number] KRISTINE PRO 4. The patient's estimated length of stay is approximately 7-10 days. 5. We will go ahead and watch his transaminases closely. I am going to follow up on him, hopefully in the a.m. if not on Wednesday morning. TRANSINT:[id number] Voice Confirmation ID: [id number] DOCUMENT ID: [id number] 04/08/18 Edited for erica GERMAN. MAXI notes whether there has been none or any medical/functional change since admission: - No change since preadmission screen. MAXI attests patient continues to be appropriate for IRF: - Continues to be appropriate. CRISTIN RICKETTS MD at 0832 CC: [id number] DICTATION DATE: 04/02/18 1548 FOOD SERVICE UTILITY WORKER: 04/02/18 1726 DIS IN 04/04/18 [facility] [address] [facility] [place] [address]
== END 2018-04-04 14:00 | disposition left against medical advice (07) | DRG 91 ==
LOC: D.REHAB 17:32
PROVIDERS: ADMIT Emergency Medicine
DX: G72.89 Other specified myopathies (principal); K75.0 Abscess of liver; R65.20 Severe sepsis without septic shock; E87.2 Acidosis; E87.1 Hypo-osmolality and hyponatremia; J90 Pleural effusion, not elsewhere classified; K80.00 Calculus of gallbladder with acute cholecystitis without obstruction; F41.9 Anxiety disorder, unspecified; B19.20 Unspecified viral hepatitis C without hepatic coma; F15.10 Other stimulant abuse, uncomplicated; D72.829 Elevated white blood cell count, unspecified; D64.9 Anemia, unspecified; G89.29 Other chronic pain; N18.9 Chronic kidney disease, unspecified